=== PATIENT | male | born 1970 | race Hispanic/Latino ===

== ENCOUNTER 2019-02-05 20:12 | Inpatient (IN) | payer SELFPAY ==
[~2019-02-05] VITALS: Ht 170.2 cm; Wt 93.5 kg
[2019-02-05] MEDS ORDERED: SODIUM CHLORIDE 0.9% 1000ML 2,000 ML IV ONE (20:24)
[2019-02-05 20:31] LABS: BASOPHILS % (AUTO) 0.2 % (0.0-5.0); EOSINOPHILS % (AUTO) 0.1 % (0.0-8.0); HEMATOCRIT 46.8 % (42-54); MEAN CORPUSCULAR HEMOGLOBIN 29.6 pg (27.0-33.0); MEAN CORPUSCULAR HGB CONC 33.7 g/dL (32.0-36.0); MONOCYTES % (AUTO) 2.4 % (3.0-13.0); NEUTROPHILS % (AUTO) 92.3 % (40.0-77.0); PLATELET COUNT (AUTO) 308 K/uL (130-400); RED BLOOD CELL COUNT(AUTO) 5.32 MIL/uL (4.50-6.20); WHITE BLOOD COUNT (AUTO) 20.8 K/uL (4.8-10.8)
[2019-02-05 20:43] LABS: INR 0.99 (0.85-1.15); LIPASE 171 U/L (114-286); PARTIAL THROMBOPLASTIN TIME 31.8 SEC (26.3-35.5); PROTHROMBIN TIME 10.4 SEC (9.6-11.6)
[2019-02-05 20:45] LABS: ALCOHOL, BLOOD < 3 mg/dL (0-10)
[2019-02-05 20:46] LABS: ALBUMIN 4.4 g/dL (3.5-5.0); BILIRUBIN,TOTAL 0.9 mg/dL (0.2-1.0); POTASSIUM 3.7 mmol/L (3.5-5.1); TOTAL PROTEIN, SERUM 8.4 g/dL (6.0-8.3)
[2019-02-05] MEDS ORDERED: INSULIN HUMULIN R 100 UNIT/ML 3ML ONE (21:07)
[2019-02-05] MEDS ORDERED: ASPIRIN 325 MG TABLET ONE (21:18)
[2019-02-05] MEDS ORDERED: MORPHINE SULFATE 2 MG/ML 1ML SYG IV PRN (22:15)
[2019-02-05] MEDS ORDERED: DiphenhydrAMINE HCL 50 MG/ML VIAL IV PRN (22:15)
[2019-02-05] MEDS ORDERED: ONDANSETRON HCL 4 MG/2 ML VIAL IV PRN (22:15)
[2019-02-05] MEDS ORDERED: ACETAMINOPHEN 325 MG TAB PO PRN (22:15)
[2019-02-05 22:37] LABS: HEMOGLOBIN A1C 10.5 % (4.0-6.0)
[2019-02-05 23:09] LABS: APPEARANCE,URINE Clear (CLEAR); BILIRUBIN,URINE Negative (NEGATIVE); COLOR,URINE Yellow (YELLOW); GLUCOSE, URINE (UA) >=1000 mg/dL (NEGATIVE); KETONES,URINE 15 mg/dL (NEGATIVE); LEUKOCYTE ESTERASE ,URINE Negative (NEGATIVE); NITRATE,URINE Negative (NEGATIVE); OCCULT BLOOD,URINE Negative (NEGATIVE); PROTEIN,URINE Negative (NEGATIVE); UROBILINOGEN,URINE 0.2 mg/dL (0.2-1.0)
[2019-02-05] MEDS ORDERED: SODIUM CHLORIDE 0.9% 1000ML 1,000 ML IV ONE (23:17)
[2019-02-05 23:25] LABS: AMPHET/METH SCREEN,URINE NEGATIVE (NEGATIVE); BARBITURATE SCREEN, URINE NEGATIVE (NEGATIVE); BENZODIAZEPINES SCREEN,URINE NEGATIVE (NEGATIVE); CANNABINOID SCREEN,URINE NEGATIVE (NEGATIVE); COCAINE SCREEN,URINE NEGATIVE (NEGATIVE); OPIATE SCREEN,URINE NEGATIVE (NEGATIVE); PHENCYCLIDINE SCREEN,URINE NEGATIVE (NEGATIVE)
[2019-02-05 23:39] LABS: BACTERIA,URINE Rare /HPF (None Seen); MUCUS,URINE Rare LPF (None Seen); RBC,URINE None Seen /HPF (0-1); SQUAMOUS EPITHELIAL CELL,UR 0-2 /HPF (0-2); WBC,URINE 0-1 /HPF (0-1)
[2019-02-06] VITALS (7 sets, daily range): BP systolic 118–137; BP diastolic 73–85
[2019-02-06] MEDS: SODIUM CHLORIDE 0.9% 1000ML 1,000 ML IV SCH ×3 (01:50→18:02)
[2019-02-06 03:03] LABS: CHOLESTEROL 97 mg/dL (<200); HDL CHOLESTEROL 51 mg/dL (29-71); LDL DIRECT 51 mg/dL (0-99); TRIGLYCERIDES 153 mg/dL (30-200)
--- NOTE | 2019-02-06 03:50 | NUR ---
STATUS UPDATE PT DENIES ACUTE PAIN OR DISCOMFORT, V/S STABLE HR 92,RESP REG ,EASY , SAO2 98% WITH O2 2LPM PER NC,NO CHEST PAIN REPORTED. Addendum: 02/06/19 at 0445 by NOHEMY MUNOZ RN RN Amended: Links added.
[2019-02-06] MEDS: INSULIN HUMULIN R 100 UNIT/ML 3ML SQ SCH ×4 (06:03→21:06)
--- NOTE | 2019-02-06 08:00 | NUR ---
PT . AAO X3 REVIEW PLAN OF CARE. NO PAIN ON BEE STINGS SITE TO HIS FACE AND HEAD, NO INCREASE SWELLING NOTED . CALL LIGHT IN REACH. NO REACTIONS FROM BEE STINGS NOTED .
[2019-02-06] MEDS ORDERED: METOPROLOL TARTRATE 25 MG TAB PO SCH (09:00)
[2019-02-06] MEDS: PREDNISONE 10 MG TABLET PO SCH (09:09)
[2019-02-06] MEDS: ASPIRIN 325MG EC TAB 325 MG TABLET.DR PO SCH (09:09)
[2019-02-06] MEDS: FAMOTIDINE 20MG TAB 20 MG TAB PO SCH ×2 (09:10→21:04)
[2019-02-06] MEDS: ENOXAPARIN SODIUM 40 MG/0.4 ML SYRINGE SQ SCH (09:25)
--- NOTE | 2019-02-06 11:58 | NUR ---
ALBERTO Bernal met with pt who has a 12yro daughter, they live with his mother Kierra Vega [phone], and his aunt and uncle. Pt works, is independent, no DME or in home care services. Pt has no PCP or rx coverage. Pt states he is on no regular meds. Pt denies dc needs, plan is home with family. CM to follow and assist as needed Addendum: 02/06/19 at 1205 by BIMAL MURILLO SS Amended: Links added.
[2019-02-06] MEDS: GLIPIZIDE 5 MG TABLET PO SCH (16:48)
[2019-02-06] MEDS: METFORMIN HCL 500 MG TABLET PO SCH (17:16)
[2019-02-06] MEDS ORDERED: ATORVASTATIN CALCIUM 20 MG TABLET PO SCH (21:00)
[2019-02-06] MEDS: METOPROLOL TARTRATE 25 MG TAB PO SCH (21:04)
[2019-02-07 03:00] VITALS: BP 119/72
[2019-02-07] MEDS: SODIUM CHLORIDE 0.9% 1000ML 1,000 ML IV SCH ×2 (03:30→14:02)
[2019-02-07 05:45] LABS: BASOPHILS % (AUTO) 0.3 % (0.0-5.0); EOSINOPHILS % (AUTO) 3.1 % (0.0-8.0); HEMATOCRIT 36.2 % (42-54); LYMPHOCYTES % (AUTO) 34.1 % (21.0-51.0); MEAN CORPUSCULAR HEMOGLOBIN 30.4 pg (27.0-33.0); MEAN CORPUSCULAR HGB CONC 34.3 g/dL (32.0-36.0); MEAN CORPUSCULAR VOLUME 88.5 fL (79-99); MONOCYTES % (AUTO) 6.8 % (3.0-13.0); NEUTROPHILS % (AUTO) 55.7 % (40.0-77.0); NUCLEATED RED BLOOD CELLS 0.1 % (0.0-0.19); PLATELET COUNT (AUTO) 227 K/uL (130-400); RED BLOOD CELL COUNT(AUTO) 4.09 MIL/uL (4.50-6.20); RED CELL DISTRIBUTION WIDTH 13.2 % (11.0-15.5); WHITE BLOOD COUNT (AUTO) 11.8 K/uL (4.8-10.8)
[2019-02-07 06:26] LABS: TROPONIN I 0.26 ng/mL (0.00-0.06)
[2019-02-07 06:33] LABS: CREATININE 0.5 mg/dL (0.5-1.5); POTASSIUM 3.2 mmol/L (3.5-5.1)
[2019-02-07] MEDS: INSULIN HUMULIN R 100 UNIT/ML 3ML SQ SCH ×3 (06:34→16:24)
[2019-02-07] MEDS ORDERED: POTASSIUM CHLORIDE 10% ELIXIR 20 MEQ/15 ML UDCUP PO PRN (06:45)
[2019-02-07] MEDS ORDERED: POTASSIUM CHLORIDE 20MEQ/100ML 100 ML IV PRN (06:45)
[2019-02-07] MEDS ORDERED: LIDOCAINE HCL-MPF 1% 2ML VIAL IVP PRN (06:45)
[2019-02-07] MEDS: POTASSIUM CHLORIDE 20 MEQ ERTAB PO PRN ×3 (06:49→15:24)
[2019-02-07] MEDS: GLIPIZIDE 5 MG TABLET PO SCH ×2 (06:49→16:27)
[2019-02-07 07:00] VITALS: BP 125/79
[2019-02-07] MEDS: METFORMIN HCL 500 MG TABLET PO SCH ×3 (08:10→16:27)
[2019-02-07] MEDS: ASPIRIN 325MG EC TAB 325 MG TABLET.DR PO SCH (08:10)
[2019-02-07] MEDS: FAMOTIDINE 20MG TAB 20 MG TAB PO SCH (08:10)
[2019-02-07] MEDS: PREDNISONE 10 MG TABLET PO SCH (08:10)
[2019-02-07] MEDS: METOPROLOL TARTRATE 25 MG TAB PO SCH (08:10)
[2019-02-07] MEDS: ENOXAPARIN SODIUM 40 MG/0.4 ML SYRINGE SQ SCH (08:11)
--- NOTE | 2019-02-07 10:00 | NUR ---
DIABETIC TEACHING PER DIETITIAN DONE, REVIEW TEACHING AND QUESTIONS AND MEDICATION AND BLOOD SUGARS MONITORING. PT IS VERY ATTENDANCE RE GARDING CARE . CALL LIGHT IN REACH..
[2019-02-07 11:00] VITALS: BP 123/76
--- NOTE | 2019-02-07 12:54 | NUR ---
Diet Education RD provided Diabetes and Nutrition diet education. RD reviewed dietary reference materials with Pt. Pt with numerous applicable questions. RD answered all of questions. Pt verbalized understanding. RD to continue to monitor. Addendum: 02/07/19 at [address] RD Amended: Links added.
[2019-02-07] MEDS ORDERED: GLIP5TAB11 PO (15:45)
[2019-02-07] MEDS ORDERED: AEC81 PO (15:45)
[2019-02-07] MEDS ORDERED: ATOR20TA65 PO (15:45)
[2019-02-07] MEDS ORDERED: METF-446 PO (15:45)
[2019-02-07] MEDS ORDERED: PRED20TA3 PO (15:45)
[2019-02-07] MEDS ORDERED: METO50TA18 PO (15:45)
[2019-02-07 16:00] VITALS: BP 132/86
== END 2019-02-07 17:45 | disposition home or self-care (01) | DRG 918 ==
LOC: EDH 20:12 → EDHIP 20:13 → OBSVTOIN 20:13 → UNDOADMOB 22:02 → EDHIP 22:02 → 3AH 02-06 01:19
PROVIDERS: ADMIT Internal Medicine; ATTEND Internal Medicine
DX: T63.441A Toxic effect of venom of bees, accidental (unintentional), initial encounter (principal); I24.8 Other forms of acute ischemic heart disease; I10 Essential (primary) hypertension; E11.9 Type 2 diabetes mellitus without complications; D72.829 Elevated white blood cell count, unspecified; L29.9 Pruritus, unspecified; E78.5 Hyperlipidemia, unspecified; Y92.89 Other specified places as the place of occurrence of the external cause
CPT/HCPCS: 36415; 71045; 80048; 80053; 80061; 80305; 81001; 82010; 82550; 82948; 83036; 83690; 83874; 83880; 84484; 85025; 85610; 85730; 93005; G0378; G0480; J1650; J1815; J7030; J7512

== ENCOUNTER 2019-05-05 10:10 | Inpatient (IN) | payer OTHER ==
[~2019-05-05] VITALS: Ht 172.7 cm; Wt 98.9 kg
[~2019-05-05 10:10] MED LIST: AEC81 PO; ATOR20TA65 PO; GLIP5TAB11 PO; METF-446 PO; METO50TA18 PO; PRED20TA3 PO
[2019-05-05 10:42] LABS: BASOPHILS % (AUTO) 0.7 % (0.0-5.0); EOSINOPHILS % (AUTO) 0.9 % (0.0-8.0); HEMATOCRIT 38.3 % (42-54); LYMPHOCYTES % (AUTO) 23.6 % (21.0-51.0); MEAN CORPUSCULAR HEMOGLOBIN 29.4 pg (27.0-33.0); MEAN CORPUSCULAR HGB CONC 33.3 g/dL (32.0-36.0); MEAN CORPUSCULAR VOLUME 88.2 fL (79-99); NEUTROPHILS % (AUTO) 65.8 % (40.0-77.0); PLATELET COUNT (AUTO) 295 K/uL (130-400); RED BLOOD CELL COUNT(AUTO) 4.34 MIL/uL (4.50-6.20); RED CELL DISTRIBUTION WIDTH 13.6 % (11.0-15.5); WHITE BLOOD COUNT (AUTO) 10.4 K/uL (4.8-10.8)
[2019-05-05 10:45] LABS: POTASSIUM 3.8 mmol/L (3.5-5.1)
[2019-05-05 10:47] LABS: INR 1.21 (0.85-1.15); PARTIAL THROMBOPLASTIN TIME 27.6 SEC (26.3-35.5); PROTHROMBIN TIME 12.6 SEC (9.6-11.6)
[2019-05-05] MEDS ORDERED: DILTIAZEM HCL 125 MG/25 ML VIAL IV ONE (10:48)
[2019-05-05 10:56] LABS: ALBUMIN 3.1 g/dL (3.5-5.0); BILIRUBIN,DIRECT 0.3 mg/dL (0.0-0.3); BILIRUBIN,TOTAL 1.1 mg/dL (0.2-1.0); MAGNESIUM 2.7 mg/dL (1.80-2.40); THYROID STIMULATING HORMONE 2.56 uIU/mL (0.36-3.74); TOTAL PROTEIN, SERUM 6.8 g/dL (6.0-8.3)
[2019-05-05] MEDS ORDERED: FUROSEMIDE 10 MG/ML 2ML VIAL ONE (11:02)
[2019-05-05 11:03] LABS: CREATININE 0.6 mg/dL (0.5-1.5)
[2019-05-05] MEDS ORDERED: METOPROLOL TARTRATE 1 MG/ML 5ML VIAL IV ONE ×2 (11:10→18:58)
[2019-05-05 11:14] LABS: B-TYPE NATRIURETIC PEPTIDE 321 pg/mL (0-100)
[2019-05-05] MEDS ORDERED: ACETAMINOPHEN 325 MG TAB PO PRN ×2 (11:15)
[2019-05-05] MEDS ORDERED: ONDANSETRON HCL 4 MG/2 ML VIAL IV PRN (11:15)
[2019-05-05] MEDS ORDERED: METOPROLOL TARTRATE 25 MG TAB ONE (12:28)
[2019-05-05] MEDS ORDERED: METOPROLOL TARTRATE 25 MG TAB PO SCH (14:00)
[2019-05-05] MEDS ORDERED: PHENYLEPHRINE HCL 10 MG/ML 1ML VIAL IV ONE (14:02)
[2019-05-05] MEDS ORDERED: MANNITOL 25% 50ML VIAL IV ONE (14:02)
[2019-05-05] MEDS ORDERED: ALBUMIN (HUMAN) 25% 50 ML IV ONE (14:02)
[2019-05-05] MEDS ORDERED: AMINOCAPROIC ACID 250 MG/ML 20 ML VIAL IV ONE (14:02)
[2019-05-05] MEDS ORDERED: HEPARIN SODIUM 1000UNIT/ML 10ML VIAL IV ONE (14:02)
[2019-05-05] MEDS ORDERED: FUROSEMIDE 10 MG/ML 2ML VIAL IVP ONE (14:02)
[2019-05-05] MEDS ORDERED: SODIUM BICARB 8.4% 50ML SYRINGE IVP ONE (14:02)
[2019-05-05] MEDS ORDERED: CALCIUM CHLORIDE 100 MG/ML 10 ML SYG IVP ONE (14:02)
[2019-05-05] MEDS ORDERED: ENOXAPARIN SODIUM 100 MG/1 ML SQ ONE (20:40)
[2019-05-05] MEDS ORDERED: ATORVASTATIN CALCIUM 20 MG TABLET ONE (20:40)
[2019-05-05] MEDS ORDERED: FAMOTIDINE/PF 20 MG/2 ML VIAL IV ONE (20:40)
[2019-05-05] MEDS: ATORVASTATIN CALCIUM 20 MG TABLET PO SCH (21:00)
[2019-05-06] MEDS ORDERED: METOPROLOL TARTRATE 25 MG TAB ONE ×4 (00:24→16:19)
[2019-05-06] MEDS ORDERED: METOPROLOL TARTRATE 1 MG/ML 5ML VIAL IV ONE ×3 (00:29→12:42)
[2019-05-06 01:48] LABS: APPEARANCE,URINE Clear (CLEAR); BILIRUBIN,URINE Negative (NEGATIVE); COLOR,URINE Yellow (YELLOW); GLUCOSE, URINE (UA) Negative (NEGATIVE); KETONES,URINE Negative (NEGATIVE); LEUKOCYTE ESTERASE ,URINE Negative (NEGATIVE); NITRATE,URINE Negative (NEGATIVE); OCCULT BLOOD,URINE Negative (NEGATIVE); PROTEIN,URINE Negative (NEGATIVE)
[2019-05-06 01:55] LABS: AMPHET/METH SCREEN,URINE NEGATIVE (NEGATIVE); BARBITURATE SCREEN, URINE NEGATIVE (NEGATIVE); BENZODIAZEPINES SCREEN,URINE NEGATIVE (NEGATIVE); CANNABINOID SCREEN,URINE NEGATIVE (NEGATIVE); COCAINE SCREEN,URINE NEGATIVE (NEGATIVE); OPIATE SCREEN,URINE NEGATIVE (NEGATIVE); PHENCYCLIDINE SCREEN,URINE NEGATIVE (NEGATIVE)
[2019-05-06] MEDS ORDERED: ASPIRIN 325 MG TABLET ONE (07:21)
[2019-05-06] MEDS ORDERED: FAMOTIDINE/PF 20 MG/2 ML VIAL IV ONE (07:22)
[2019-05-06] MEDS: ASPIRIN 325 MG TABLET PO SCH (09:00)
[2019-05-06] MEDS: FAMOTIDINE/PF 20 MG/2 ML VIAL IV SCH ×2 (09:00→20:42)
[2019-05-06] MEDS: ENOXAPARIN SODIUM 100 MG/1 ML SQ SCH ×2 (09:00→20:41)
[2019-05-06] MEDS: METOPROLOL TARTRATE 25 MG TAB PO SCH ×3 (09:00→20:42)
[2019-05-06 09:35] LABS: BASOPHILS % (AUTO) 0.8 % (0.0-5.0); EOSINOPHILS % (AUTO) 0.7 % (0.0-8.0); HEMATOCRIT 39.2 % (42-54); LYMPHOCYTES % (AUTO) 28.8 % (21.0-51.0); MEAN CORPUSCULAR HGB CONC 33.3 g/dL (32.0-36.0); MEAN CORPUSCULAR VOLUME 89.9 fL (79-99); MONOCYTES % (AUTO) 7.4 % (3.0-13.0); NEUTROPHILS % (AUTO) 62.3 % (40.0-77.0); PLATELET COUNT (AUTO) 296 K/uL (130-400); RED BLOOD CELL COUNT(AUTO) 4.35 MIL/uL (4.50-6.20); RED CELL DISTRIBUTION WIDTH 13.7 % (11.0-15.5); WHITE BLOOD COUNT (AUTO) 9.6 K/uL (4.8-10.8)
[2019-05-06 10:00] LABS: CARBON DIOXIDE 22 mmol/L (21-32); CHLORIDE 103 mmol/L (101-111); CREATINE KINASE, TOTAL 100 U/L (21-232); CREATININE 0.6 mg/dL (0.5-1.5); GLOMERULAR FILTR. RATE CALC 152 mL/min (>60); GLUCOSE,RANDOM 185 mg/dL (70-105); MYOGLOBIN 35 ng/mL (10-92); PHOSPHORUS 4.1 mg/dL (2.5-4.9); POTASSIUM 3.8 mmol/L (3.5-5.1); SODIUM SERUM 135 mmol/L (136-145); THYROID STIMULATING HORMONE 3.09 uIU/mL (0.36-3.74); TROPONIN I < 0.04 ng/mL (0.00-0.06); UREA NITROGEN, BLOOD 11 mg/dL (7-18)
[2019-05-06] MEDS ORDERED: FUROSEMIDE 10 MG/ML 4ML VIAL ONE (12:52)
[2019-05-06] MEDS ORDERED: ENOXAPARIN SODIUM 100 MG/1 ML SQ ONE (12:52)
--- NOTE | 2019-05-06 14:09 | NUR ---
DCP: HOME SW met with pt who works and is independent of all ADLS and has no DME or in home cares services. Pt lives with his mother Carla Perdue and his 13yro daughter. Pt denies dc needs and plan is home at sd. Addendum: 05/06/19 at 1412 by BIMAL MURILLO SS Amended: Links added.
[2019-05-06] MEDS: FUROSEMIDE 10 MG/ML 4ML VIAL IV SCH (16:15)
[2019-05-06] MEDS: INSULIN HUMULIN R 100 UNIT/ML 3ML SQ SCH ×2 (16:30→20:48)
[2019-05-06 16:39] LABS: CREATINE KINASE, TOTAL 92 U/L (21-232); MYOGLOBIN 29 ng/mL (10-92); TROPONIN I < 0.04 ng/mL (0.00-0.06)
[2019-05-06 17:15] VITALS: BP 131/94
[2019-05-06 19:56] VITALS: BP 139/92
[2019-05-06] MEDS: ATORVASTATIN CALCIUM 20 MG TABLET PO SCH (20:41)
[2019-05-06 23:06] VITALS: BP 145/88
[2019-05-07] LABS: CREATINE KINASE, TOTAL 98 U/L (21-232); MYOGLOBIN 30 ng/mL (10-92); TROPONIN I < 0.04 ng/mL (0.00-0.06)
[2019-05-07] MEDS: FUROSEMIDE 10 MG/ML 4ML VIAL IV SCH ×3 (00:14→16:14)
--- NOTE | 2019-05-07 01:20 | NUR ---
SPOKE TO JEANNE CONN, INFORMED HIM ABOUT PATIENT HEART RATE FROM 130-150 AFIB, HE INPUT A NEW ORDER OF LOPRESSOR 5MG IV Q6
[2019-05-07] MEDS: METOPROLOL TARTRATE 1 MG/ML 5ML VIAL IV PRN ×2 (01:57→12:51)
--- NOTE | 2019-05-07 02:20 | NUR ---
PT GIVEN LOPRESSOR 5MG IV PRN. DUE TO HR 140'S. PT CURRENTLY AT 110. PT IS ASYMPTOMATIC.
[2019-05-07 03:05] VITALS: BP 112/51
[2019-05-07] MEDS: INSULIN HUMULIN R 100 UNIT/ML 3ML SQ SCH ×4 (05:44→20:26)
[2019-05-07 07:20] VITALS: BP 128/75
[2019-05-07] MEDS: FAMOTIDINE/PF 20 MG/2 ML VIAL IV SCH ×2 (08:53→20:15)
[2019-05-07] MEDS: ASPIRIN 325 MG TABLET PO SCH (08:53)
[2019-05-07] MEDS: METOPROLOL TARTRATE 25 MG TAB PO SCH ×3 (08:53→20:14)
[2019-05-07] MEDS: ENOXAPARIN SODIUM 100 MG/1 ML SQ SCH ×2 (08:54→20:14)
[2019-05-07 11:05] VITALS: BP 128/89
[2019-05-07 15:00] VITALS: BP 106/69
[2019-05-07 19:03] VITALS: BP 112/74
[2019-05-07] MEDS: ATORVASTATIN CALCIUM 20 MG TABLET PO SCH (20:15)
[2019-05-07 23:11] VITALS: BP 127/89
[2019-05-08] MEDS: FUROSEMIDE 10 MG/ML 4ML VIAL IV SCH ×2 (00:58→08:48)
[2019-05-08 03:24] VITALS: BP 118/73
[2019-05-08 04:33] LABS: HEMATOCRIT 36.4 % (42-54); MEAN CORPUSCULAR HEMOGLOBIN 29.8 pg (27.0-33.0); MEAN CORPUSCULAR HGB CONC 33.7 g/dL (32.0-36.0); MEAN CORPUSCULAR VOLUME 88.4 fL (79-99); NUCLEATED RED BLOOD CELLS 0.1 % (0.0-0.19); PLATELET COUNT (AUTO) 311 K/uL (130-400); RED BLOOD CELL COUNT(AUTO) 4.12 MIL/uL (4.50-6.20); RED CELL DISTRIBUTION WIDTH 13.4 % (11.0-15.5); WHITE BLOOD COUNT (AUTO) 10.7 K/uL (4.8-10.8)
[2019-05-08 04:46] LABS: CARBON DIOXIDE 26 mmol/L (21-32); CHLORIDE 106 mmol/L (101-111); CREATININE 0.6 mg/dL (0.5-1.5); GLOMERULAR FILTR. RATE CALC 152 mL/min (>60); GLUCOSE,RANDOM 112 mg/dL (70-105); HDL CHOLESTEROL 20 mg/dL (29-71); LDL DIRECT 25 mg/dL (0-99); SODIUM SERUM 144 mmol/L (136-145); TRIGLYCERIDES 30 mg/dL (30-200); UREA NITROGEN, BLOOD 11 mg/dL (7-18)
--- NOTE | 2019-05-08 05:00 | NUR ---
PT HAS BEEN INFORMED MULTIPLE TIMES TO USE URINAL, DUE TO STRICT I/O'S. NON COMPLIANT. CONTINUES TO VOID IN THE TOILET. URINAL PLACED NEAR THE TOILET. PT AWARE TO USE URINAL IN ORDER TO DOCUMENT AMOUNT OF OUTPUT DUE TO ACUTE CHF DIAGNOSIS.
[2019-05-08 05:36] LABS: HEMOGLOBIN A1C 8.2 % (4.0-6.0)
[2019-05-08] MEDS ORDERED: LIDOCAINE HCL-MPF 1% 2ML VIAL IV PRN (05:45)
[2019-05-08] MEDS ORDERED: POTASSIUM CHLORIDE 10% ELIXIR 20 MEQ/15 ML UDCUP PO PRN (05:45)
[2019-05-08] MEDS ORDERED: POTASSIUM CHLORIDE 20MEQ/100ML 100 ML IV PRN (05:45)
[2019-05-08] MEDS: INSULIN HUMULIN R 100 UNIT/ML 3ML SQ SCH ×4 (06:11→21:00)
[2019-05-08 06:12] LABS: BAND NEUTROPHILS % (MANUAL) 1 % (0-2); BASOPHILS % (MANUAL) 4 % (0-2); EOSINOPHILS % (MANUAL) 1 % (1-6); LYMPHOCYTES % (MANUAL) 40 % (22-44); MONOCYTES % (MANUAL) 10 % (2-9); SEGMENTED NEUTROPHILS % 44 % (40-70)
[2019-05-08 06:14] LABS: MAN.DIFF COMMENT-IMPRESSION MANUAL DIFFERENTIAL; PLATELET MORPHOLOGY COMMENT ADEQUATE
[2019-05-08] MEDS: POTASSIUM CHLORIDE 20 MEQ ERTAB PO PRN ×5 (06:48→22:06)
[2019-05-08 07:05] VITALS: BP 123/76
[2019-05-08] MEDS: FAMOTIDINE/PF 20 MG/2 ML VIAL IV SCH ×2 (08:47→21:19)
[2019-05-08] MEDS: METOPROLOL TARTRATE 25 MG TAB PO SCH ×3 (08:47→21:19)
[2019-05-08] MEDS: ASPIRIN 325 MG TABLET PO SCH (08:47)
[2019-05-08] MEDS: ENOXAPARIN SODIUM 100 MG/1 ML SQ SCH ×2 (08:48→21:19)
[2019-05-08] MEDS: METOPROLOL TARTRATE 1 MG/ML 5ML VIAL IV PRN (09:04)
[2019-05-08 11:05] VITALS: BP 108/67
[2019-05-08] MEDS ORDERED: DILTIAZEM HCL 5 MG/ML 10 ML VIAL IV ONE (12:04)
[2019-05-08] MEDS ORDERED: DILTIAZEM HCL 5 MG/ML 10 ML VIAL IV SCH (12:10)
[2019-05-08 13:17] LABS: CHOLESTEROL < 50 mg/dL (<200)
[2019-05-08] MEDS ORDERED: IOHEXOL-350 75 ML VIAL IV ONE (13:46)
[2019-05-08 15:00] VITALS: BP 110/76
[2019-05-08] MEDS: DILTIAZEM HCL 60 MG TABLET PO SCH (17:16)
[2019-05-08 18:51] VITALS: BP 105/55
[2019-05-08] MEDS: ATORVASTATIN CALCIUM 20 MG TABLET PO SCH (21:19)
[2019-05-08 23:11] VITALS: BP 108/71
[2019-05-09] MEDS: DILTIAZEM HCL 60 MG TABLET PO SCH ×4 (00:39→23:54)
[2019-05-09 03:30] VITALS: BP 100/66
[2019-05-09 03:56] LABS: HEMATOCRIT 38.3 % (42-54); MEAN CORPUSCULAR HEMOGLOBIN 29.6 pg (27.0-33.0); MEAN CORPUSCULAR HGB CONC 33.6 g/dL (32.0-36.0); MEAN CORPUSCULAR VOLUME 88.1 fL (79-99); NUCLEATED RED BLOOD CELLS 0.1 % (0.0-0.19); PLATELET COUNT (AUTO) 331 K/uL (130-400); RED BLOOD CELL COUNT(AUTO) 4.35 MIL/uL (4.50-6.20); RED CELL DISTRIBUTION WIDTH 13.6 % (11.0-15.5); WHITE BLOOD COUNT (AUTO) 10.3 K/uL (4.8-10.8)
[2019-05-09 04:06] LABS: CREATININE 0.7 mg/dL (0.5-1.5); POTASSIUM 4.1 mmol/L (3.5-5.1)
[2019-05-09 04:56] LABS: BAND NEUTROPHILS % (MANUAL) 4 % (0-2); BASOPHILS % (MANUAL) 1 % (0-2); LYMPHOCYTES % (MANUAL) 36 % (22-44); MAN.DIFF COMMENT-IMPRESSION MANUAL DIFFERENTIAL; MONOCYTES % (MANUAL) 3 % (2-9); REACTIVE LYMPHOCYTES 1 % (0-0); SEGMENTED NEUTROPHILS % 55 % (40-70)
[2019-05-09 04:57] LABS: PLATELET MORPHOLOGY COMMENT ADEQUATE
[2019-05-09] MEDS ORDERED: MAGNESIUM 2GM PREMIX 50ML 50 ML IV PRN (05:15)
[2019-05-09] MEDS ORDERED: MAGNESIUM 2GM PREMIX 50ML 50 ML IV ONE (05:39)
[2019-05-09] MEDS: INSULIN HUMULIN R 100 UNIT/ML 3ML SQ SCH ×4 (06:32→21:32)
[2019-05-09 07:00] VITALS: BP 123/73
--- NOTE | 2019-05-09 07:30 | NUR ---
ASSESSMENT ENCOUNTERED PT A&OX3, CALM COOPERATIVE AND DOES NOT APPEAR TO BE IN ANY DISTRESS NOR ANY NEURO DEFICITS PRESENT. PT DENIES PAIN, SOB, NAUSEA. PT IS AMBULATORY, GAIT SLOW AND STRONG WITH STAND BY ASSIST, PT IS NPO FOR PENDING LEXISCAN. CALL LIGHT WITHIN REACH.
[2019-05-09] MEDS: FAMOTIDINE/PF 20 MG/2 ML VIAL IV SCH (07:58)
[2019-05-09] MEDS: ENOXAPARIN SODIUM 100 MG/1 ML SQ SCH ×2 (07:58→21:28)
[2019-05-09] MEDS: METOPROLOL TARTRATE 25 MG TAB PO SCH ×3 (07:59→21:28)
[2019-05-09] MEDS ORDERED: REGADENOSON 0.4 MG/5 ML PF SYG IVP SCH (08:15)
[2019-05-09 11:00] VITALS: BP 120/74
[2019-05-09] MEDS: ASPIRIN 325 MG TABLET PO SCH (13:03)
[2019-05-09] MEDS: FUROSEMIDE 40 MG TABLET PO SCH (13:03)
[2019-05-09 15:00] VITALS: BP 133/78
[2019-05-09 19:00] VITALS: BP 108/69
[2019-05-09] MEDS: ATORVASTATIN CALCIUM 20 MG TABLET PO SCH (21:27)
[2019-05-09] MEDS: FAMOTIDINE 20MG TAB 20 MG TAB PO SCH (21:28)
[2019-05-09 23:00] VITALS: BP 106/66
[2019-05-10] VITALS (7 sets, daily range): BP systolic 98–118; BP diastolic 64–78
[2019-05-10 03:45] LABS: HEMATOCRIT 37.8 % (42-54); MEAN CORPUSCULAR HEMOGLOBIN 29.6 pg (27.0-33.0); MEAN CORPUSCULAR HGB CONC 33.3 g/dL (32.0-36.0); MEAN CORPUSCULAR VOLUME 88.7 fL (79-99); NUCLEATED RED BLOOD CELLS 0.1 % (0.0-0.19); PLATELET COUNT (AUTO) 301 K/uL (130-400); RED BLOOD CELL COUNT(AUTO) 4.27 MIL/uL (4.50-6.20); RED CELL DISTRIBUTION WIDTH 13.3 % (11.0-15.5); WHITE BLOOD COUNT (AUTO) 9.5 K/uL (4.8-10.8)
[2019-05-10 03:59] LABS: B-TYPE NATRIURETIC PEPTIDE 182 pg/mL (0-100)
[2019-05-10 04:03] LABS: CREATININE 0.7 mg/dL (0.5-1.5); MAGNESIUM 1.9 mg/dL (1.80-2.40); PHOSPHORUS 3.8 mg/dL (2.5-4.9); POTASSIUM 3.7 mmol/L (3.5-5.1)
[2019-05-10] MEDS: INSULIN HUMULIN R 100 UNIT/ML 3ML SQ SCH ×4 (05:22→20:33)
[2019-05-10] MEDS: DILTIAZEM HCL 60 MG TABLET PO SCH ×3 (05:36→18:01)
--- NOTE | 2019-05-10 07:35 | NUR ---
ASSESSMENT ENCOUNTERED PT A&OX3, SITTING UP IN CHAIR, CALM COOPERATIVE AN DOES NOT APPEAR TO BE IN ANY DISTRESS NOR ANY NEURO DEFICITS PRESENT. PT DENIES PAIN, SOB, NAUSEA. PT IS AMBULATORY, GAIT STEADY AND STRONG WITH STAND BY ASSIST. CALL LIGHT WITHIN REACH.
[2019-05-10] MEDS: FAMOTIDINE 20MG TAB 20 MG TAB PO SCH ×2 (10:26→20:25)
[2019-05-10] MEDS: ASPIRIN 325 MG TABLET PO SCH (10:26)
[2019-05-10] MEDS: FUROSEMIDE 40 MG TABLET PO SCH (10:26)
[2019-05-10] MEDS: ENOXAPARIN SODIUM 100 MG/1 ML SQ SCH ×2 (10:27→20:26)
[2019-05-10] MEDS: METOPROLOL TARTRATE 25 MG TAB PO SCH ×3 (10:27→20:25)
[2019-05-10] MEDS ORDERED: SODIUM CHLORIDE 0.9% 500ML 500 ML IV SCH (10:36)
--- NOTE | 2019-05-10 17:22 | NUR ---
RD SCREEN - LOS X 5 Pt admitted for Acute CHF, Afib with RVR, Hx of DM, Obesity (BMI 33.9). Pt tolerating current Heart healthy diet order as per Pt; Recommend 75gm CC to diet order. Pt LBM 05/09/19. Pt monitored labs: BUN 21, Glu 156, Ca 8.1, BNP 182, Alb 3.1. RD to continue to monitor. Please notify RD as nutritional concerns arise. Thank you. Addendum: 05/10/19 at [address] RD Amended: Links added.
--- NOTE | 2019-05-10 19:31 | NUR ---
ASSESSMENT PATIENT IS RESTING IN BED. FAMILY AT BEDSIDE. ALERT AND ORIENTED X3. NO COMPLAINTS OF PAIN. NO SIGNS OF DISTRESS. NO SHORTNESS OF BREATH. PATIENT IS AWARE OF NPO P MIDNIGHT STATUS FOR HEART CATH TOMORROW. PATIENT UNDERSTAND AND AGREES FOR PROCEDURE AND WILL OBTAIN INFORMED CONSENT FOR PROCEDURE ORDERED TODAY SINCE 10AM. PATIENTS CALL LIGHT AND BEDSIDE TABLE IS WITHIN REACH. PATIENT IS AMBULATORY WITH NO ASSIST. PATIENT VOICES NO COMPLAINTS, QUESTIONS, OR NEEDS AT THIS TIME. REINFORCED TO USE CALL LIGHT FOR ANY NEEDS.
[2019-05-10] MEDS: ATORVASTATIN CALCIUM 20 MG TABLET PO SCH (20:25)
[2019-05-11] VITALS (10 sets, daily range): BP systolic 101–133; BP diastolic 62–88
--- NOTE | 2019-05-11 | NUR ---
ASSESSMENT PATIENT IS RESTING IN BED. NO SIGNS OF DISTRESS. NO SHORTNESS OF BREATH. NO COMPLAINTS OF PAIN AT THIS TIME. PATIENT IS REINFORCED AND REMINDED THAT HE IS NPO FOR HEART CATH IN THE AM. PATIENT HAS ALREADY SHOWERED AND BEEN CLIPPED FOR PROCEDURE. CALL LIGHT WITHIN REACH. NO COMPLAINTS, QUESTIONS, OR NEEDS AT THIS TIME.
[2019-05-11] MEDS: DILTIAZEM HCL 60 MG TABLET PO SCH ×4 (00:27→18:26)
[2019-05-11 04:37] LABS: HEMATOCRIT 37.9 % (42-54); MEAN CORPUSCULAR HEMOGLOBIN 29.3 pg (27.0-33.0); MEAN CORPUSCULAR HGB CONC 33.2 g/dL (32.0-36.0); MEAN CORPUSCULAR VOLUME 88.2 fL (79-99); NUCLEATED RED BLOOD CELLS 0.1 % (0.0-0.19); PLATELET COUNT (AUTO) 323 K/uL (130-400); RED BLOOD CELL COUNT(AUTO) 4.29 MIL/uL (4.50-6.20); RED CELL DISTRIBUTION WIDTH 13.3 % (11.0-15.5); WHITE BLOOD COUNT (AUTO) 9.4 K/uL (4.8-10.8)
[2019-05-11 04:44] LABS: CREATININE 0.6 mg/dL (0.5-1.5); POTASSIUM 3.3 mmol/L (3.5-5.1)
[2019-05-11 04:46] LABS: INR 1.21 (0.85-1.15); PARTIAL THROMBOPLASTIN TIME 32.2 SEC (26.3-35.5); PROTHROMBIN TIME 12.6 SEC (9.6-11.6)
[2019-05-11] MEDS: INSULIN HUMULIN R 100 UNIT/ML 3ML SQ SCH ×4 (06:38→22:20)
[2019-05-11] MEDS: ENOXAPARIN SODIUM 100 MG/1 ML SQ SCH (09:00)
[2019-05-11] MEDS: ASPIRIN 325 MG TABLET PO SCH (09:00)
[2019-05-11] MEDS: FAMOTIDINE 20MG TAB 20 MG TAB PO SCH ×2 (09:12→21:02)
[2019-05-11] MEDS: METOPROLOL TARTRATE 25 MG TAB PO SCH ×3 (09:13→21:03)
[2019-05-11] MEDS: POTASSIUM CHLORIDE 20 MEQ ERTAB PO PRN ×3 (10:58→21:02)
[2019-05-11] MEDS: FUROSEMIDE 40 MG TABLET PO SCH (12:52)
[2019-05-11] MEDS ORDERED: IOHEXOL-350 50ML VIAL IV ONE (14:35)
[2019-05-11] MEDS ORDERED: HEPARIN SODIUM 1000UNIT/ML 10ML VIAL ONE (14:35)
[2019-05-11] MEDS ORDERED: IOHEXOL 350 MG/ML 100ML INFUS..BTL IV ONE (14:36)
[2019-05-11] MEDS ORDERED: LIDOCAINE HCL 2% 20ML ONE (15:06)
--- NOTE | 2019-05-11 16:26 | NUR ---
PT IN PROFILER HOLDING AREA. VS STABLE - BP 115/79, HR 98, RR 16, O2 SAT 99% ON 2L/MIN VIA NC. NO COMPLAINTS. RT FEMORAL 6FR ARTERIAL LINE REMOVED APPLYING MANUAL PRESSURE AND A D-STAT. PT TOLERATING WELL. NO BLEEDING OR HEMATOMA NOTED TO SITE.
--- NOTE | 2019-05-11 16:47 | NUR ---
MANUAL PRESSURE HELD X 25 MIN. DRESSING APPLIED TO SITE. NO BLEEDING OR HEMATOMA NOTED TO SITE. PT TRANSFERRED TO RM 221. VS STABLE BP-130/67, HR-99, RR-17, O2 SAT 97% W/ O2 @ 2 L/MIN VIA NC. NO COMPLAINTS.
--- NOTE | 2019-05-11 16:55 | NUR ---
POST CATH Received pt post LHC. Placed on tele monitor. Pt denies chest pain, pressure or tightness. Denies SOB. Pt aware of activity restrictions post procedure. Right groin D-stat drsg is clean, dry. No tenderness with palpation. No bleeding/oozing or hematoma present. BLE's warm to touch. Pedal pulses palpable. Needed items within reach. Positioned for comfort.
[2019-05-11] MEDS ORDERED: CEFAZOLIN SODIUM 1 GM VIAL IVP PRN (17:45)
[2019-05-11 19:14] LABS: HEMOGLOBIN A1C 7.5 % (4.0-6.0)
[2019-05-11] MEDS: ATORVASTATIN CALCIUM 40 MG TABLET PO SCH (21:02)
[2019-05-12] VITALS (18 sets, daily range): BP systolic 85–204; BP diastolic 47–92
--- NOTE | 2019-05-12 | NUR ---
PFTs Per RT Finn, PFTs will be done day shift.
[2019-05-12] MEDS: DILTIAZEM HCL 60 MG TABLET PO SCH ×3 (00:30→12:31)
[2019-05-12 03:58] LABS: HEMATOCRIT 37.9 % (42-54); MEAN CORPUSCULAR HEMOGLOBIN 29.2 pg (27.0-33.0); MEAN CORPUSCULAR VOLUME 88.4 fL (79-99); PLATELET COUNT (AUTO) 296 K/uL (130-400); RED BLOOD CELL COUNT(AUTO) 4.28 MIL/uL (4.50-6.20); RED CELL DISTRIBUTION WIDTH 13.4 % (11.0-15.5); WHITE BLOOD COUNT (AUTO) 8.9 K/uL (4.8-10.8)
[2019-05-12 04:09] LABS: INR 1.23 (0.85-1.15); PARTIAL THROMBOPLASTIN TIME 29.2 SEC (26.3-35.5); PROTHROMBIN TIME 12.8 SEC (9.6-11.6)
[2019-05-12 04:11] LABS: CARBON DIOXIDE 24 mmol/L (21-32); CHLORIDE 109 mmol/L (101-111); CREATININE 0.7 mg/dL (0.5-1.5); GLOMERULAR FILTR. RATE CALC 127 mL/min (>60); GLUCOSE,RANDOM 168 mg/dL (70-105); HDL CHOLESTEROL 38 mg/dL (29-71); LDL DIRECT 21 mg/dL (0-99); POTASSIUM 3.7 mmol/L (3.5-5.1); SODIUM SERUM 143 mmol/L (136-145); TRIGLYCERIDES 31 mg/dL (30-200); UREA NITROGEN, BLOOD 12 mg/dL (7-18)
[2019-05-12 04:21] LABS: B-TYPE NATRIURETIC PEPTIDE 163 pg/mL (0-100)
--- NOTE | 2019-05-12 05:21 | NUR ---
Assessment Patient s/p LHC. Patient denies chest pain or sob. Bedrest up at 0000. Groin soft. No bleeding or hematoma. Pedal pules strong. No bleeding after ambulation. Educated on pos cath restrictions. Patient prepped for CABG. HR remains A-fib.115-120/. Will continue to monitor. Call light within reach
[2019-05-12 05:30] LABS: CHOLESTEROL < 50 mg/dL (<200)
[2019-05-12] MEDS: INSULIN HUMULIN R 100 UNIT/ML 3ML SQ SCH ×2 (06:51→11:30)
[2019-05-12] MEDS ORDERED: LISINOPRIL 5 MG TABLET PO SCH (09:00)
[2019-05-12] MEDS ORDERED: ASPIRIN 81MG TAB.CHEW PO SCH (09:00)
[2019-05-12] MEDS: FAMOTIDINE 20MG TAB 20 MG TAB PO SCH (09:39)
[2019-05-12] MEDS: METOPROLOL TARTRATE 25 MG TAB PO SCH ×2 (09:40→14:00)
[2019-05-12] MEDS: FUROSEMIDE 40 MG TABLET PO SCH (09:40)
[2019-05-12] MEDS ORDERED: PAPAVERINE HCL 30 MG/ML 2ML VIAL ONE (12:38)
[2019-05-12] MEDS ORDERED: BACITRACIN 50,000 UNIT VIAL ONE (12:38)
[2019-05-12] MEDS ORDERED: HEPARIN SODIUM 1000UNIT/ML 10ML VIAL ONE ×2 (14:41→15:34)
[2019-05-12] MEDS ORDERED: NITROGLYCERIN 50 MG/D5% WATER 1 BOT ONE (15:12)
[2019-05-12] MEDS ORDERED: EPINEPHRINE 1 MG/ML 30ML VIAL IJ ONE (15:12)
[2019-05-12] MEDS ORDERED: AMINOCAPROIC ACID 250 MG/ML 20 ML VIAL IV ONE (15:34)
[2019-05-12] MEDS ORDERED: EPINEPHRINE 1 MG/ML AMPULE ONE (15:34)
[2019-05-12] MEDS ORDERED: PROPOFOL 10 MG/ML 20ML VIAL IV ONE (15:34)
[2019-05-12] MEDS ORDERED: LIDOCAINE PF 2% 5ML ABBOJECT ONE (15:34)
[2019-05-12] MEDS ORDERED: ESMOLOL HCL 10 MG/ML 10 ML VIAL ONE ×3 (15:34→20:09)
[2019-05-12] MEDS ORDERED: NOREPINEPHRINE BITARTRATE 1 MG/1 ML ML IV ONE (15:34)
[2019-05-12] MEDS ORDERED: SODIUM BICARB 50MEQ 50ML VIAL ONE ×2 (15:34→18:37)
[2019-05-12] MEDS ORDERED: PROTAMINE SULFATE 10 MG/ML 25ML VIAL IV ONE (15:34)
[2019-05-12] MEDS ORDERED: MIDAZOLAM HCL 1 MG/ML 2ML VIAL ONE (15:35)
[2019-05-12] MEDS ORDERED: ROCURONIUM 10MG/1ML SYR 10 MG/ML ML ONE ×2 (15:35→16:51)
[2019-05-12] MEDS ORDERED: FENTANYL CITRATE PF 50 MCG/1 ML 20ML VIAL IJ ONE (15:35)
[2019-05-12] MEDS ORDERED: ETOMIDATE 2 MG/ML 10 ML VIAL ONE (15:36)
[2019-05-12] MEDS ORDERED: AMIODARONE HCL 50 MG/ML 3 ML VIAL ONE (15:37)
[2019-05-12] MEDS ORDERED: METOPROLOL TARTRATE 1 MG/ML 5ML VIAL IV ONE (15:53)
[2019-05-12 16:01] LABS: ABG BASE EXCESS -7.2 mmol/L (-2.0-3.0); ABG HCO3 16.4 mmol/L (21.0-28.0); ABG OXYGEN SATURATION 95.8 % (95.0-99.0); ABG PCO2 28 mmHg (35-48)
[2019-05-12 16:34] LABS: ABG BASE EXCESS -0.8 mmol/L (-2.0-3.0); ABG HCO3 22.6 mmol/L (21.0-28.0); ABG OXYGEN SATURATION 97.4 % (95.0-99.0); ABG PCO2 34 mmHg (35-48)
[2019-05-12] MEDS ORDERED: AMIODARONE HCL 900 MG in DEXTROSE 5%-WATER 500 ML IV PRN (16:45)
[2019-05-12 17:08] LABS: ABG BASE EXCESS 1.4 mmol/L (-2.0-3.0); ABG PCO2 41 mmHg (35-48)
[2019-05-12 17:51] LABS: ABG BASE EXCESS 4.5 mmol/L (-2.0-3.0); ABG HCO3 29.3 mmol/L (21.0-28.0); ABG PCO2 45 mmHg (35-48)
[2019-05-12 18:27] LABS: HCO3,VENOUS BLOOD GAS 21.6 (21.0-28.0); PCO2,VENOUS BLOOD GAS 46 (35-48); PH,VENOUS BLOOD GAS 7.288 (7.350-7.450)
[2019-05-12] MEDS ORDERED: POTASSIUM CHLORIDE 20MEQ/100ML 300 ML IV ONE (18:36)
[2019-05-12 18:47] LABS: ABG BASE EXCESS -0.4 mmol/L (-2.0-3.0); ABG HCO3 25.8 mmol/L (21.0-28.0); ABG OXYGEN SATURATION 99.2 % (95.0-99.0); ABG PCO2 49 mmHg (35-48)
[2019-05-12] MEDS ORDERED: SODIUM CHLORIDE 0.9% 500ML 500 ML IV SCH (18:55)
[2019-05-12] MEDS ORDERED: MORPHINE SULFATE 2 MG/ML 1ML SYG IV PRN (19:00)
[2019-05-12] MEDS ORDERED: TRAMADOL HCL 50 MG TABLET PO PRN (19:00)
[2019-05-12] MEDS ORDERED: ALBUMIN (HUMAN) 5% 250 ML IV PRN (19:00)
[2019-05-12] MEDS ORDERED: ACETAMINOPHEN 650 MG SUPPOSITORY RC PRN (19:00)
[2019-05-12] MEDS ORDERED: GLUCAGON 1MG KIT 1 MG ML IM PRN (19:00)
[2019-05-12] MEDS ORDERED: ONDANSETRON HCL 4 MG/2 ML VIAL IV PRN (19:00)
[2019-05-12] MEDS ORDERED: ACETAMINOPHEN 325 MG TAB PO PRN (19:00)
[2019-05-12] MEDS ORDERED: NOREPINEPHRINE 4MG/NS 250ML 250 ML IV PRN (19:00)
[2019-05-12] MEDS ORDERED: CALCIUM GLUCONATE 1 GM in SODIUM CHLORIDE 0.9% 50 ML IV PRN (19:00)
[2019-05-12] MEDS ORDERED: DEXTROSE 50%-WATER 50 ML DISP.SYRIN IV PRN (19:00)
[2019-05-12] MEDS ORDERED: SODIUM CHLORIDE 0.9% 10 ML VIAL IVP PRN (19:00)
[2019-05-12] MEDS ORDERED: SODIUM CHLORIDE 0.9% 1000ML 1,000 ML IV SCH (19:00)
[2019-05-12] MEDS ORDERED: SODIUM CHLORIDE 0.9% 250 ML IV PRN (19:00)
[2019-05-12] MEDS ORDERED: EPINEPHRINE 2 MG in DEXTROSE 5%-WATER 250 ML IV PRN (19:00)
[2019-05-12] MEDS ORDERED: NITROGLYCERIN 50 MG/D5% WATER 250 BOT IV SCH (19:00)
[2019-05-12] MEDS ORDERED: AMINOCAPROIC ACID 15,000 MG in SODIUM CHLORIDE 0.9% 250 ML IV SCH (19:00)
[2019-05-12] MEDS ORDERED: POTASSIUM PHOS 15 mMOL+NS250ML 250 ML IV PRN (19:00)
[2019-05-12 19:33] LABS: ABG BASE EXCESS -1.1 mmol/L (-2.0-3.0); ABG HCO3 21.6 mmol/L (21.0-28.0); ABG OXYGEN SATURATION 97.4 % (95.0-99.0); ABG PCO2 30 mmHg (35-48)
--- NOTE | 2019-05-12 20:08 | NUR ---
RECEIVED INTO CVR 213 IMMEDIATE POST CABG X4 SEDATED/INTUBATED; NON RESPONSIVE. CONNECTED TO BEDSIDE MONITOR HR 136 WITH BP 204/92. DR MONTES HERE. HE PUSHED SOME ESMOLOL IV. LEVOPHED 1MCG/MIN, EPINEPHRINE 0.03MCG/KG/MIN, AMIKAR 55ML/HR, AMIODARONE 33.3ML/HR ALL INFUSING VIA RT IJ CORDIS. CXR TAKEN & DR MONTES VIEWED IMAGE HE PULLED OUT ET TUBE 1CM WHICH NOW IS AT 22CM AT LIP LEVEL. R.T. HERE AND SECURED ET TUBE. VENT AC 12/700/+5/100% PS 10. MIDSTERNAL DRESSING DRY & INTACT. CHEST TUBES X2 SECURE, PATENT, DRAINING SANGUINOUS FLUID INTO ONE ATRIUM CONNECTED TO 20CM H20 SUCTION; NO LEAKS NOTED. SIMON CATHETER SECURE & PATENT. BLE'S WITH ELASTIC BANDAGES. BILATERAL PEDAL PULSES PALPABLE. WILL INITIATE CVR PROTOCOLS FOR DRIP & VENT WEANING PER MD ORDERS. DR MNOTES LEFT AFTER VIEWING FIRST SET OF ABG RESULTS AT 2025 AND HR SINUS 103BPM AND IBP 115/55.
[2019-05-12 20:30] LABS: ABG BASE EXCESS -1.1 mmol/L (-2.0-3.0); ABG HCO3 22.7 mmol/L (21.0-28.0); ABG OXYGEN SATURATION 91.5 % (95.0-99.0); ABG PCO2 36 mmHg (35-48)
[2019-05-12 20:32] LABS: HEMATOCRIT 40.8 % (42-54); MEAN CORPUSCULAR HEMOGLOBIN 28.9 pg (27.0-33.0); MEAN CORPUSCULAR HGB CONC 32.6 g/dL (32.0-36.0); MEAN CORPUSCULAR VOLUME 88.8 fL (79-99); PLATELET COUNT (AUTO) 227 K/uL (130-400); RED CELL DISTRIBUTION WIDTH 13.9 % (11.0-15.5); WHITE BLOOD COUNT (AUTO) 20.7 K/uL (4.8-10.8)
[2019-05-12 20:43] LABS: CREATININE 0.8 mg/dL (0.5-1.5); INR 1.56 (0.85-1.15); MAGNESIUM 1.4 mg/dL (1.80-2.40); PARTIAL THROMBOPLASTIN TIME 36.3 SEC (26.3-35.5); PHOSPHORUS 4.4 mg/dL (2.5-4.9); PROTHROMBIN TIME 16.1 SEC (9.6-11.6)
[2019-05-12 20:48] LABS: POTASSIUM 2.8 mmol/L (3.5-5.1)
[2019-05-12] MEDS: MAGNESIUM 2GM PREMIX 50ML 50 ML IV PRN (21:02)
[2019-05-12] MEDS: SODIUM BICARB 50MEQ 50ML VIAL IV PRN (21:02)
[2019-05-12] MEDS: POTASSIUM CHLORIDE 20MEQ/100ML 100 ML IV PRN ×3 (21:03→23:05)
[2019-05-12 21:27] LABS: ABG BASE EXCESS 3.7 mmol/L (-2.0-3.0); ABG HCO3 26.3 mmol/L (21.0-28.0); ABG OXYGEN SATURATION 91.9 % (95.0-99.0); ABG PCO2 34 mmHg (35-48)
--- NOTE | 2019-05-12 21:39 | NUR ---
UPDATED DR CAMACHO REGARDING PATIENT STATUS. REPORTED ABG RESULTS THE ONES DRAWN AT 2025 AND 2124. INFORMED HIM OF CURRENT DRIPS/DOSAGES/RATES INCLUDING PROPOFOL FOR SEDATION, V/S, CVP, C.O., C.I., CHEST TUBE OUTPUT, URINE OUTPUT. HE VIEWED CXR. ORDER RECEIVED TO NOT WEAN EPINEPHRINE DRIP & KEEP SEDATED/INTUBATED OVER NIGHT. PATIENT CURRENTLY ON PROPOFOL 50MCG/KG/MIN AND INTERMITTENTLY AROUSES REACHING FOR ET TUBE AND FLAILING BOTH ARMS AND LEGS. NODS 'YES" TO QUESTIONS ASKED. STRONG BILATERAL HAND DINING CAR HOP. FREQUENT FACIAL GRIMACES NOTED ALONG WITH RESTLESSNESS. WILL KEEP SEDATED WITH PROPOFOL AND USE MORPHINE ORDERED PRN PAIN.
[2019-05-12] MEDS: PROPOFOL 1000 MG/100 ML 100 ML IV PRN (21:53)
[2019-05-12] MEDS: INSULIN REGULAR, HUMAN 3ML 100 UNIT in SODIUM CHLORIDE 0.9% 99 ML IV SCH ×2 (22:14)
[2019-05-12] MEDS: MORPHINE SULFATE 4 MG/1ML SYG IV PRN (22:17)
[2019-05-12] MEDS: FAMOTIDINE/PF 20 MG/2 ML VIAL IV SCH (22:18)
[2019-05-13] VITALS (24 sets, daily range): BP systolic 78–147; BP diastolic 44–79
--- NOTE | 2019-05-13 | NUR ---
ASSESSMENT INTERMITTENTLY AWAKENS, OPENS EYES. TURNS WHEN CALLED BY NAME. MOVES ALL 4 EXTREMITIES. REACHES AND GRABS ET TUBE. RE-ORIENTED TO POST OP STATUS, PLACE, & TIME. RELAXES & BECOMES SEDATED AGAIN. HAS REMAINED IN SINUS RHYTHM HR 80-90'S. TITRATING LEVOPHED DRIP FOR BP CONTROL.
[2019-05-13] MEDS: CEFAZOLIN SODIUM 1 GM VIAL IV SCH ×3 (00:07→15:15)
[2019-05-13] MEDS: ATORVASTATIN CALCIUM 40 MG TABLET PO SCH ×2 (00:09→20:13)
[2019-05-13 00:45] LABS: MAGNESIUM 2.1 mg/dL (1.80-2.40); PHOSPHORUS 4.1 mg/dL (2.5-4.9)
[2019-05-13] MEDS: MORPHINE SULFATE 4 MG/1ML SYG IV PRN (00:50)
[2019-05-13] MEDS: PROPOFOL 1000 MG/100 ML 100 ML IV PRN ×3 (00:54→07:48)
[2019-05-13 01:27] LABS: ABG BASE EXCESS -0.5 mmol/L (-2.0-3.0); ABG OXYGEN SATURATION 96.7 % (95.0-99.0); ABG PCO2 30 mmHg (35-48)
[2019-05-13] MEDS: POTASSIUM CHLORIDE 20MEQ/100ML 100 ML IV PRN ×6 (01:38→21:14)
[2019-05-13 04:11] LABS: ABG HCO3 21.7 mmol/L (21.0-28.0); ABG OXYGEN SATURATION 94.1 % (95.0-99.0); ABG PCO2 31 mmHg (35-48)
[2019-05-13 04:26] LABS: HEMATOCRIT 35.9 % (42-54); MEAN CORPUSCULAR HEMOGLOBIN 29.2 pg (27.0-33.0); MEAN CORPUSCULAR HGB CONC 33.1 g/dL (32.0-36.0); MEAN CORPUSCULAR VOLUME 88.2 fL (79-99); PLATELET COUNT (AUTO) 255 K/uL (130-400); RED BLOOD CELL COUNT(AUTO) 4.07 MIL/uL (4.50-6.20); RED CELL DISTRIBUTION WIDTH 13.8 % (11.0-15.5); WHITE BLOOD COUNT (AUTO) 15.8 K/uL (4.8-10.8)
--- NOTE | 2019-05-13 04:28 | NUR ---
ASSESSMENT NO CHANGE IN STATUS. CONTINUES WITH BRIEF INTERMITTENT EPISODES OF RESTLESSNESS AND ANXIETY REACHING FOR ET TUBE AND THROWING LEGS OVER BED RAILS. RE-ORIENT TO PLACE, TIME, & SITUATION. ABG'S REVIEWED. PENDING AM LAB RESULTS. LEVOPHED CURRENTLY AT 9MCG/MIN WITH IBP 107/58. Addendum: 05/13/19 at 0431 by EVELIA WHITLOCK RN RN Amended: Links added.
[2019-05-13 04:58] LABS: MAGNESIUM 1.8 mg/dL (1.80-2.40); PHOSPHORUS 2.9 mg/dL (2.5-4.9); POTASSIUM 3.2 mmol/L (3.5-5.1)
[2019-05-13 05:18] LABS: INR 1.33 (0.85-1.15); PARTIAL THROMBOPLASTIN TIME 27.7 SEC (26.3-35.5); PROTHROMBIN TIME 13.6 SEC (9.6-11.6)
[2019-05-13] MEDS: MAGNESIUM 2GM PREMIX 50ML 50 ML IV PRN ×2 (05:20→21:14)
[2019-05-13] MEDS ORDERED: PHARMACY COMMUNICATION MISC SCH (06:00)
[2019-05-13] MEDS ORDERED: FUROSEMIDE 10 MG/ML 4ML VIAL IV SCH (06:30)
[2019-05-13] MEDS: SODIUM BICARB 50MEQ 50ML VIAL IV PRN ×2 (06:36→12:14)
--- NOTE | 2019-05-13 06:37 | NUR ---
REPORTED AM ABG AND LAB RESULTS TO DR CAMACHO ALSO REPORTED CURRENT V/S, DRIPS RATES AND DOSAGES, VENT SETTINGS. INFORMED HIM OF HYPOTENSION WITH LEVOPHED CURRENTLY 9MCG/MIN. ORDERS RECEIVED AND CARRIED OUT.
[2019-05-13] MEDS: NOREPINEPHRINE BITARTRATE 8 MG/NS 250ML IV SCH ×4 (07:48→16:27)
[2019-05-13] MEDS: FAMOTIDINE/PF 20 MG/2 ML VIAL IV SCH ×2 (09:39→20:13)
--- NOTE | 2019-05-13 09:42 | NUR ---
DR. CAMACHO IN TO SE PT. PLAN OF CARE DISCUSSED. NEW ORDERS RECEIVED AND NOTED.
[2019-05-13] MEDS: DEXMEDETOMIDINE HCL 400 MCG in SODIUM CHLORIDE 0.9% 100 ML IV SCH ×2 (09:47→16:28)
[2019-05-13 10:14] LABS: ABG BASE EXCESS 0.7 mmol/L (-2.0-3.0); ABG PCO2 31 mmHg (35-48)
--- NOTE | 2019-05-13 11:00 | NUR ---
DR. GORDON CALLED AND NOTIFIED OF CONSULT.
--- NOTE | 2019-05-13 11:17 | NUR ---
Per Nursing not ready for PT Re-evaluation today.Patient is intubated. Addendum: 05/13/19 at 1119 by DIANNE RODRIGUEZ, PT PT Amended: Links added.
--- NOTE | 2019-05-13 11:39 | NUR ---
CHART CHECK COMPLETED. Pt IS A 49 YEAR OLD MALE CURRENTLY ADMITTED SECONDARY TO ACUTE CONGESTIVE HEART FAILURE, AND AFIB WITH RVR. Pt S/P INTERVENTION. Pt WITH PAST MEDICAL HISTORY SIGNIFICANT FOR DMII AND OBESITY. Pt CURRENTLY NPO ON A VENTILATOR. SKILLED SPEECH THERAPY IS RECOMMENDED TO EVALUATE Pt 24HOURS POST EXTUBATION. Addendum: 05/13/19 at 1142 by KAIDEN COPELAND, [facility] Amended: Links added.
--- NOTE | 2019-05-13 11:55 | NUR ---
PT STARTED ON PRECEDEX ORDERED. PROPOFOL WEANED OFF. PT OPENS EYES TO VERBAL STIMULI, FOLLOWING SIMPLE COMMANDS. PT CALM AND COOPERATIVE. VS NOTE ON COMPUTER. CONTINUE TO MONITOR PT.
[2019-05-13 12:11] LABS: ABG BASE EXCESS -2.3 mmol/L (-2.0-3.0); ABG PCO2 25 mmHg (35-48)
--- NOTE | 2019-05-13 13:00 | NUR ---
DR. GORDON IN TO SEE PT. PLAN OF CARE DISCUSSED. NEW ORDERS RECEIVED AND NOTED.
[2019-05-13 13:26] LABS: ABG BASE EXCESS 0.5 mmol/L (-2.0-3.0); ABG HCO3 22.3 mmol/L (21.0-28.0); ABG OXYGEN SATURATION 95.8 % (95.0-99.0); ABG PCO2 29 mmHg (35-48)
--- NOTE | 2019-05-13 14:00 | NUR ---
DR. BARAHONA IN TO SEE PT. PLAN OF CARE DISCUSSED. NEW ORDERS RECEIVED AND NOTED.
[2019-05-13] MEDS: FUROSEMIDE 10 MG/ML 2ML VIAL IV SCH ×2 (14:28→21:13)
[2019-05-13 14:38] LABS: ABG BASE EXCESS 1.7 mmol/L (-2.0-3.0); ABG OXYGEN SATURATION 94.8 % (95.0-99.0); ABG PCO2 31 mmHg (35-48)
[2019-05-13 16:20] LABS: ABG BASE EXCESS 3.4 mmol/L (-2.0-3.0); ABG HCO3 26.2 mmol/L (21.0-28.0); ABG OXYGEN SATURATION 94.6 % (95.0-99.0); ABG PCO2 34 mmHg (35-48)
[2019-05-13] MEDS: INSULIN REGULAR, HUMAN 3ML 100 UNIT in SODIUM CHLORIDE 0.9% 99 ML IV SCH ×2 (16:38)
--- NOTE | 2019-05-13 17:10 | NUR ---
PT TOLERATING WEANING FROM VENT. NIF -26. DR. GORDON AND JANICE LOPEZ NOTIFIED OF ABG RESULTS. NEW ORDERS RECEIVED AND NOTED. PT EXTUBATED ORDERED. PT NOTED TACHYPNEIC AND O2 SATS 88%. PT PLACED ON BIPAP ORDERED. CONTINUE TO MONITOR PT.
[2019-05-13] MEDS ORDERED: FUROSEMIDE 10 MG/ML 2ML VIAL IV SCH (17:45)
[2019-05-13 18:45] LABS: ABG BASE EXCESS 1.3 mmol/L (-2.0-3.0); ABG HCO3 23.4 mmol/L (21.0-28.0); ABG OXYGEN SATURATION 95.7 % (95.0-99.0); ABG PCO2 30 mmHg (35-48)
--- NOTE | 2019-05-13 19:00 | NUR ---
ASSESSMENT ASSUMED CARE. AA&OX3. SITTING UP IN BED 45 DEGREES ON BIPAP 12/5 80% BACKUP RATE 16 AND CURRENT RESPIRATORY RATE 30PM. BEDSIDE MONITORING. SINUS RHYTHM HR 89. ARTERIAL SBP 110-116 & DBP 45-48. O2 SAT 96%. CHEST TUBES SECURE, PATENT, NO LEAKS NOTED. SIMON CATHETER SECURE, PATENT. BLE'S WITH TEDS & SCD'S ENCOURAGED COUGH & DEEP BREATHING. LABORED BREATHING NOTED OFF BIPAP WHEN MASK WAS REMOVED FOR ORAL CARE. INSTRUCTED ON IMPORTANCE OF KEEPING MASK IN PLACE FOR OPTIMUM OXYGENATION. NODDED HEAD IN UNDERSTANDING BUT ASKING FOR WATER. INSTRUCTED ON RISK FOR ASPIRATION D/T DYSPNEA & TACHYPNEA. MOISTENED MOUTH WITH WET ORAL SWABS. WILL CONTINUE TO MONITOR.
[2019-05-13 20:11] LABS: MAGNESIUM 1.8 mg/dL (1.80-2.40); POTASSIUM 3.6 mmol/L (3.5-5.1)
[2019-05-13] MEDS: TRAMADOL HCL 50 MG TABLET PO PRN (21:15)
--- NOTE | 2019-05-13 21:24 | NUR ---
HYPOKALEMIA/HYPOMAGNESEMIA K+3.6 AND MG 1.8. REPLACING PER IV PROTOCOLS. NO ARRYTHMIAS NOTED. CONTINUES IN NORMAL SINUS RHYTHM HR 92.
--- NOTE | 2019-05-13 22:11 | NUR ---
LABORED BREATHING CONTINUES WITH TACHYPNEA RR 34-38. O2 SAT 97%. ENCOURAGED COUGH & DEEP BREATHING / SLOW CONTROLLED BREATHING WITH BIPAP. DIURESED 237 ML OF YELLOW CLEAR URINE THE LAST HOUR POST LASIX 20MG IV SCHEDULED. WILL CONTINUE TO MONITOR. Addendum: 05/13/19 at 2214 by EVELIA WHITLOCK RN RN Amended: Links added.
[2019-05-14] VITALS (25 sets, daily range): BP systolic 85–158; BP diastolic 50–90
[2019-05-14] MEDS: POTASSIUM CHLORIDE 20MEQ/100ML 100 ML IV PRN ×5 (00:58→23:34)
[2019-05-14 03:31] LABS: HEMATOCRIT 35.3 % (42-54); MEAN CORPUSCULAR HEMOGLOBIN 28.7 pg (27.0-33.0); MEAN CORPUSCULAR HGB CONC 32.2 g/dL (32.0-36.0); PLATELET COUNT (AUTO) 235 K/uL (130-400); RED BLOOD CELL COUNT(AUTO) 3.97 MIL/uL (4.50-6.20); RED CELL DISTRIBUTION WIDTH 13.5 % (11.0-15.5); WHITE BLOOD COUNT (AUTO) 19.8 K/uL (4.8-10.8)
[2019-05-14 03:34] LABS: CREATININE 0.7 mg/dL (0.5-1.5); POTASSIUM 3.5 mmol/L (3.5-5.1)
[2019-05-14 05:47] LABS: ABG BASE EXCESS -3.1 mmol/L (-2.0-3.0); ABG HCO3 20.6 mmol/L (21.0-28.0); ABG OXYGEN SATURATION 96.2 % (95.0-99.0); ABG PCO2 33 mmHg (35-48)
[2019-05-14] MEDS: FUROSEMIDE 10 MG/ML 2ML VIAL IV SCH ×3 (06:18→22:11)
[2019-05-14] MEDS: FAMOTIDINE/PF 20 MG/2 ML VIAL IV SCH ×2 (08:45→20:10)
[2019-05-14] MEDS ORDERED: ASPIRIN 325 MG TABLET PO SCH (09:00)
[2019-05-14] MEDS: SODIUM BICARB 50MEQ 50ML VIAL IV PRN (10:28)
[2019-05-14] MEDS ORDERED: FUROSEMIDE 10 MG/ML 4ML VIAL IV SCH (10:30)
[2019-05-14] MEDS: INSULIN HUMULIN R 100 UNIT/ML 3ML SQ SCH ×3 (11:41→21:29)
[2019-05-14 12:29] LABS: ABG HCO3 24.4 mmol/L (21.0-28.0); ABG OXYGEN SATURATION 88.3 % (95.0-99.0); ABG PCO2 32 mmHg (35-48)
[2019-05-14] MEDS: ATORVASTATIN CALCIUM 40 MG TABLET PO SCH (20:10)
[2019-05-14] MEDS: TRAMADOL HCL 50 MG TABLET PO PRN (20:11)
[2019-05-14] MEDS ORDERED: POTASSIUM CHLORIDE 20 MEQ ERTAB PO SCH (21:00)
[2019-05-14] MEDS ORDERED: AMIODARONE HCL 200 MG TABLET PO SCH (21:00)
[2019-05-15] VITALS (21 sets, daily range): BP systolic 127–173; BP diastolic 65–102
--- NOTE | 2019-05-15 00:35 | NUR ---
ALTERED MENTAL STATUS. FOUND OUT OF BED, STANDING ON SIDE OF BED. ALTERED MENTAL STATUS WITH BIPAP STILL IN PLACE. ASSISTED BACK TO BED. CALLED R.T. ORDERED ABG'S STAT. PATIENT ONLY MOVING RIGHT ARM, GAZES TO THE RIGHT ONLY. NO MOVEMENT TO LEFT ARM. WITHDRAWS BILATERAL LOWER EXTREMITIES TO PAIN. NOT FOLLOWING COMMANDS AT THIS TIME. ABG RESULTS RECEIVED AT [address] CAMACHO. HE ORDERED STAT CT SCAN OF HEAD TO RULE OUT BLEED, NS 60ML/HR AND DOPAMINE DRIP TO KEEP SBP 165-180.
[2019-05-15 00:47] LABS: ABG BASE EXCESS -1.8 mmol/L (-2.0-3.0); ABG HCO3 22.2 mmol/L (21.0-28.0); ABG OXYGEN SATURATION 98.6 % (95.0-99.0); ABG PCO2 35 mmHg (35-48)
[2019-05-15] MEDS ORDERED: DOPAMINE 800MG/D5 250ML 250 ML IV PRN (01:00)
[2019-05-15] MEDS ORDERED: SODIUM CHLORIDE 0.9% 1000ML 1,000 ML IV SCH (01:00)
[2019-05-15] MEDS ORDERED: DOPAMINE 800MG/D5 250ML 250 ML IV ONE (01:02)
--- NOTE | 2019-05-15 01:30 | NUR ---
BACK FROM CT SCAN. SETTLED BACK IN ROOM. CONTINUES ON BIPAP. ALTERED MENTAL STATUS. NOT FOLLOWING COMMANDS. ONLY MOVING RIGHT ARM & HAND. NOT MOVING LEFT ARM/HAND. MOVES BLE'S. GAZE STILL ONLY TO RIGHT. SINUS TACH HR 108. BP 130/70, DOPAMINE DRIP INITIATED PER MD ORDER.
--- NOTE | 2019-05-15 02:47 | NUR ---
RECEIVED CALL FROM ALESHIA DELGADO-NEUROLOGIST FROM [facility] TELE ORDERED TO HAVE CTA HEAD & NECK DONE NOW TO RULE OUT LARGE VESSEL OCCLUSION. NOTIFIED DIE MAKER STAMPING. ON-CALL TECH NOTIFIED TO COME IN FOR EXAM.
[2019-05-15] MEDS ORDERED: IOHEXOL-350 75 ML VIAL IV ONE (02:57)
--- NOTE | 2019-05-15 03:38 | NUR ---
S/P CTA HEAD AND NECK PENDING REPORT. PATIENT CALM, APPEARS TO BE SLEEPING, EYES CLOSED. AROUSABLE WHEN CALLED BY NAME, ONLY RESPONDS WITH MOANS AND FOLLOWS SIMPLE COMMANDS, BECOMES ANXIOUS.
[2019-05-15 04:05] LABS: HEMATOCRIT 32.2 % (42-54); MEAN CORPUSCULAR HEMOGLOBIN 28.9 pg (27.0-33.0); MEAN CORPUSCULAR HGB CONC 33.1 g/dL (32.0-36.0); MEAN CORPUSCULAR VOLUME 87.3 fL (79-99); NUCLEATED RED BLOOD CELLS 0.1 % (0.0-0.19); PLATELET COUNT (AUTO) 219 K/uL (130-400); RED BLOOD CELL COUNT(AUTO) 3.69 MIL/uL (4.50-6.20); RED CELL DISTRIBUTION WIDTH 13.4 % (11.0-15.5); WHITE BLOOD COUNT (AUTO) 18.8 K/uL (4.8-10.8)
[2019-05-15 04:20] LABS: CREATININE 0.6 mg/dL (0.5-1.5); POTASSIUM 3.3 mmol/L (3.5-5.1)
[2019-05-15] MEDS: POTASSIUM CHLORIDE 20MEQ/100ML 100 ML IV PRN ×2 (04:26→05:32)
[2019-05-15 04:33] LABS: ABG BASE EXCESS -0.1 mmol/L (-2.0-3.0); ABG HCO3 23.9 mmol/L (21.0-28.0); ABG OXYGEN SATURATION 96.1 % (95.0-99.0); ABG PCO2 38 mmHg (35-48)
[2019-05-15] MEDS: FUROSEMIDE 10 MG/ML 2ML VIAL IV SCH (06:10)
--- NOTE | 2019-05-15 06:30 | NUR ---
REPORTED CT HEAD/CTA HEAD & NECK RESULTS TO DR CAMACHO. ORDERED TO REPORT TO TELE NEUROLOGIST FOR FURTHER RECOMMENDATIONS
[2019-05-15] MEDS: INSULIN HUMULIN R 100 UNIT/ML 3ML SQ SCH (07:30)
--- NOTE | 2019-05-15 07:33 | NUR ---
DR. CAMACHO HE HAS SPOKEN TO DR. ADLER AT [facility]--DECISION HAS BEEN MADE TO TRANSFER THE PATIENT
--- NOTE | 2019-05-15 07:43 | NUR ---
[facility] CALL PLACED TO [facility] TRANSFUSION NURSE TO INITIATE TRANSFER
--- NOTE | 2019-05-15 07:50 | NUR ---
DR. TOMLINSON HAS ACCEPTED PT. FOR TRANSFER TO [facility]
--- NOTE | 2019-05-15 08:06 | NUR ---
[facility] CALLED FOR TRANSPORT
--- NOTE | 2019-05-15 08:30 | NUR ---
REPORT CALLED TO [facility] Deanne MCKAY RN AT [phone].
--- NOTE | 2019-05-15 08:39 | NUR ---
EMS AT BEDSIDE FOR PT. MOTHER AT BEDSIDE AND UPDATED. ALL QUESTIONS ANSWERED, YANET NICE RETURNED TO MOTHER. REPORT GIVEN TO EMS. PT TRANSFERRED WITH DOPAMINE AT 8 MGS/KG/MIN AND NS AT 60 ML/HR. VS NOTED IN EMR. CHART AND RADIOLOGY IMAGES COPIED AND SEND WITH EMS.
--- NOTE | 2019-05-15 08:39 | NUR ---
PT TRANSFERRED WITH 2 IV PUMPS.
[2019-05-15] MEDS ORDERED: POTASSIUM CHLORIDE 10% ELIXIR 20 MEQ/15 ML UDCUP PO SCH (09:00)
== END 2019-05-15 08:38 | disposition short-term general hospital (02) | DRG 233 ==
LOC: EDH 10:10 → EDHIP 10:11 → 2DH 05-06 17:27 → 2CV 05-12 15:26 → 2CH 05-13 16:25
PROVIDERS: ADMIT Internal Medicine; ATTEND Internal Medicine
PROC: B2111ZZ Fluoroscopy of Multiple Coronary Arteries using Low Osmolar Contrast (ICD-10-PCS; principal; 2019-05-11)
PROC: 4A023N7 Measurement of Cardiac Sampling and Pressure, Left Heart, Percutaneous Approach (ICD-10-PCS; 2019-05-11)
PROC: B2151ZZ Fluoroscopy of Left Heart using Low Osmolar Contrast (ICD-10-PCS; 2019-05-11)
PROC: B4101ZZ Fluoroscopy of Abdominal Aorta using Low Osmolar Contrast (ICD-10-PCS; 2019-05-11)
PROC: 02100Z9 Bypass Coronary Artery, One Artery from Left Internal Mammary, Open Approach (ICD-10-PCS; 2019-05-12)
PROC: 021209W Bypass Coronary Artery, Three Arteries from Aorta with Autologous Venous Tissue, Open Approach (ICD-10-PCS; 2019-05-12)
PROC: 06BQ4ZZ Excision of Left Saphenous Vein, Percutaneous Endoscopic Approach (ICD-10-PCS; 2019-05-12)
PROC: 06BP4ZZ Excision of Right Saphenous Vein, Percutaneous Endoscopic Approach (ICD-10-PCS; 2019-05-12)
PROC: 5A1221Z Performance of Cardiac Output, Continuous (ICD-10-PCS; 2019-05-12)
PROC: 5A09357 Assistance with Respiratory Ventilation, Less than 24 Consecutive Hours, Continuous Positive Airway Pressure (ICD-10-PCS; 2019-05-13)
PROC: 5A09357 Assistance with Respiratory Ventilation, Less than 24 Consecutive Hours, Continuous Positive Airway Pressure (ICD-10-PCS; 2019-05-14)
PROC: 5A09357 Assistance with Respiratory Ventilation, Less than 24 Consecutive Hours, Continuous Positive Airway Pressure (ICD-10-PCS; 2019-05-15)
DX: I25.10 Atherosclerotic heart disease of native coronary artery without angina pectoris (principal); I50.43 Acute on chronic combined systolic (congestive) and diastolic (congestive) heart failure; Q22.5 Ebstein's anomaly; D68.59 Other primary thrombophilia; Q24.5 Malformation of coronary vessels; I48.19 Other persistent atrial fibrillation; I48.92 Unspecified atrial flutter; E11.9 Type 2 diabetes mellitus without complications; E78.5 Hyperlipidemia, unspecified; R09.89 Other specified symptoms and signs involving the circulatory and respiratory systems; I25.5 Ischemic cardiomyopathy; E78.00 Pure hypercholesterolemia, unspecified; I11.0 Hypertensive heart disease with heart failure; I35.8 Other nonrheumatic aortic valve disorders; I45.10 Unspecified right bundle-branch block; E66.9 Obesity, unspecified; Z68.33 Body mass index [BMI] 33.0-33.9, adult; Z79.899 Other long term (current) drug therapy; Z83.3 Family history of diabetes mellitus; Z82.49 Family history of ischemic heart disease and other diseases of the circulatory system
CPT/HCPCS: 36415; 36600; 70450; 70496; 70498; 71045; 71046; 71275; 76998; 78452; 80048; 80061; 80076; 80305; 81003; 82330; 82435; 82550; 82803; 82947; 82948; 83036; 83605; 83690; 83735; 83874; 83880; 84100; 84132; 84295; 84443; 84484; 85018; 85025; 85027; 85610; 85730; 86850; 86900; 86901; 86922; 93005; 93017; 93306; 93458; 93880; 94002; 94003; 94010; 94150; 94660; 96374; 97039; 99291; A7048; A9500; C1894; G0378; J0171; J0282; J0610; J0690; J1265; J1644; J1650; J1815; J1940; J2001; J2150; J2250; J2270; J2370; J2440; J2704; J2720; J2785; J3010; J3475; J3480; J3490; J7030; J7040; J7060; J7120; P9045; P9047; Q9967

== ENCOUNTER → 2019-09-19 | Outpatient (CLI) | payer OTHER ==
[~2019-09-19] MED LIST changes: -PRED20TA3 PO
== END | disposition home or self-care (01) ==
LOC: SHCH 08:18
PROVIDERS: ATTEND Internal Medicine Cardiovascular Disease
DX: I25.5 Ischemic cardiomyopathy (principal)
CPT/HCPCS: 93306; 93356

== ENCOUNTER → 2019-10-13 | Outpatient (CLI) | payer OTHER | END | disposition home or self-care (01) | LOC: OIH 09:09 | PROVIDERS: ATTEND Family Medicine | DX: I50.9 Heart failure, unspecified (principal); I63.9 Cerebral infarction, unspecified; Z02.71 Encounter for disability determination | CPT/HCPCS: 71046 ==

== ENCOUNTER 2020-10-10 16:09 | Inpatient (IN) | payer OTHER ==
[2020-10-10 16:57] LABS: BASOPHILS % (AUTO) 1.1 % (0.0-5.0); EOSINOPHILS % (AUTO) 0.8 % (0.0-8.0); HEMATOCRIT 41.1 % (42-54); LYMPHOCYTES % (AUTO) 23.3 % (21.0-51.0); MEAN CORPUSCULAR HEMOGLOBIN 27.6 pg (27.0-33.0); MEAN CORPUSCULAR HGB CONC 32.4 g/dL (32.0-36.0); MEAN CORPUSCULAR VOLUME 85.3 fL (79-99); MONOCYTES % (AUTO) 9.3 % (3.0-13.0); NEUTROPHILS % (AUTO) 65.2 % (40.0-77.0); PLATELET COUNT (AUTO) 266 K/uL (130-400); RED BLOOD CELL COUNT(AUTO) 4.82 MIL/uL (4.50-6.20); RED CELL DISTRIBUTION WIDTH 14.4 % (11.0-15.5); WHITE BLOOD COUNT (AUTO) 8.8 K/uL (4.8-10.8)
[2020-10-10] MEDS ORDERED: 0.9%NACL 10ML VIAL IVP SCH (17:00)
[2020-10-10] MEDS ORDERED: ACETAMINOPHEN 325 MG TAB PO PRN (17:00)
[2020-10-10 17:09] LABS: INR 1.48 (0.85-1.15); PROTHROMBIN TIME 15.6 SEC (9.6-11.6)
[2020-10-10 17:10] LABS: PARTIAL THROMBOPLASTIN TIME 31.9 SEC (26.3-35.5)
[2020-10-10 17:12] LABS: HEMOGLOBIN A1C 5.6 % (4.0-6.0)
[2020-10-10 17:13] LABS: CREATININE 0.7 mg/dL (0.5-1.5); POTASSIUM 4.1 mmol/L (3.5-5.1)
[2020-10-10 17:18] LABS: ALBUMIN 3.6 g/dL (3.5-5.0); BILIRUBIN,TOTAL 2.6 mg/dL (0.2-1.0); TOTAL PROTEIN, SERUM 7.3 g/dL (6.0-8.3)
[2020-10-10 17:24] LABS: B-TYPE NATRIURETIC PEPTIDE 247 pg/mL (0-100)
[2020-10-10 17:45] LABS: THYROID STIMULATING HORMONE 1.69 uIU/mL (0.36-3.74)
[2020-10-10] MEDS ORDERED: MORPHINE 2 MG SYG IV PRN (17:45)
[2020-10-10 18:38] VITALS: BP 129/90
[2020-10-10 20:36] LABS: BILIRUBIN,DIRECT 0.3 mg/dL (0.0-0.3)
[2020-10-10] MEDS: FAMOTIDINE 20MG VIAL IV SCH (22:01)
[2020-10-10] MEDS: LORATADINE 10 MG TABLET PO SCH (22:01)
[2020-10-10] MEDS: ATORVASTATIN 20 MG TABLET PO SCH (22:01)
[2020-10-10 22:04] VITALS: BP 132/90
[2020-10-10] MEDS: METOPROLOL TARTRATE 50 MG TAB PO SCH (22:06)
[2020-10-10] MEDS: GLIPIZIDE 5 MG TABLET PO SCH (22:08)
[2020-10-11] VITALS (12 sets, daily range): BP systolic 120–147; BP diastolic 79–105
[2020-10-11] MEDS ORDERED: DILTIAZEM 50MG VIAL IV SCH (00:45)
[2020-10-11] MEDS ORDERED: DILTIAZEM 50MG VIAL IV ONE ×2 (00:49→02:30)
[2020-10-11 05:40] LABS: BASOPHILS % (AUTO) 0.9 % (0.0-5.0); HEMATOCRIT 38.6 % (42-54); LYMPHOCYTES % (AUTO) 32.9 % (21.0-51.0); MEAN CORPUSCULAR HEMOGLOBIN 27.5 pg (27.0-33.0); MEAN CORPUSCULAR HGB CONC 32.4 g/dL (32.0-36.0); MONOCYTES % (AUTO) 10.2 % (3.0-13.0); NEUTROPHILS % (AUTO) 54.7 % (40.0-77.0); PLATELET COUNT (AUTO) 236 K/uL (130-400); RED BLOOD CELL COUNT(AUTO) 4.54 MIL/uL (4.50-6.20); RED CELL DISTRIBUTION WIDTH 14.3 % (11.0-15.5); WHITE BLOOD COUNT (AUTO) 7.8 K/uL (4.8-10.8)
[2020-10-11 05:51] LABS: ALBUMIN 3.3 g/dL (3.5-5.0); BILIRUBIN,TOTAL 1.7 mg/dL (0.2-1.0); CREATININE 0.6 mg/dL (0.5-1.5); POTASSIUM 3.8 mmol/L (3.5-5.1); TOTAL PROTEIN, SERUM 6.8 g/dL (6.0-8.3)
[2020-10-11] MEDS: GLIPIZIDE 5 MG TABLET PO SCH ×2 (08:00→16:40)
[2020-10-11] MEDS ORDERED: DILTIAZEM 125 MG/25 ML INJ 125 MG in 0.9%NACL 100ML 100 ML IV SCH (08:15)
[2020-10-11] MEDS: METOPROLOL TARTRATE 50 MG TAB PO SCH ×3 (09:00→21:04)
[2020-10-11] MEDS: LISINOPRIL 2.5 MG TABLET PO SCH (09:00)
[2020-10-11] MEDS: FAMOTIDINE 20MG VIAL IV SCH ×2 (09:11→21:05)
[2020-10-11] MEDS: FUROSEMIDE 20 MG TABLET PO SCH (09:30)
[2020-10-11] MEDS ORDERED: 0.9%NACL 1000ML 1,000 ML IV SCH (09:45)
[2020-10-11] MEDS ORDERED: MEPERIDINE-PF 25 MG/ML SYG ONE ×3 (13:33→15:38)
[2020-10-11] MEDS ORDERED: HEPARIN 10,000 UNIT/10ML (1,000 UNIT/ML) VIAL ONE (13:33)
[2020-10-11] MEDS ORDERED: LIDOCAINE HCL 400MG/20ML VIAL ONE (13:33)
[2020-10-11] MEDS ORDERED: ISOPROTERENOL HCL 0.2 MG/ML AMP/VIAL/BAG ONE (13:33)
[2020-10-11] MEDS ORDERED: MIDAZOLAM HCL 1 MG/ML 2ML VIAL ONE (13:33)
[2020-10-11] MEDS ORDERED: DiphenhydrAMINE HCL 50 MG/ML VIAL ONE (14:55)
[2020-10-11] MEDS ORDERED: APIXABAN 5 MG TABLET PO SCH (21:00)
[2020-10-11] MEDS ORDERED: APIXABAN 5 MG TABLET PO ONE (21:02)
[2020-10-11] MEDS: LORATADINE 10 MG TABLET PO SCH (21:04)
[2020-10-11] MEDS: APIXABAN 5 MG TABLET PO SCH (21:04)
[2020-10-11] MEDS: ATORVASTATIN 20 MG TABLET PO SCH (21:05)
[2020-10-12 00:05] VITALS: BP 135/93
[2020-10-12 04:12] VITALS: BP 125/83
[2020-10-12 05:13] LABS: BASOPHILS % (AUTO) 0.8 % (0.0-5.0); EOSINOPHILS % (AUTO) 0.3 % (0.0-8.0); HEMATOCRIT 39.1 % (42-54); LYMPHOCYTES % (AUTO) 19.9 % (21.0-51.0); MEAN CORPUSCULAR HEMOGLOBIN 27.7 pg (27.0-33.0); MEAN CORPUSCULAR VOLUME 86.5 fL (79-99); MONOCYTES % (AUTO) 7.8 % (3.0-13.0); NEUTROPHILS % (AUTO) 70.8 % (40.0-77.0); PLATELET COUNT (AUTO) 215 K/uL (130-400); RED BLOOD CELL COUNT(AUTO) 4.52 MIL/uL (4.50-6.20); RED CELL DISTRIBUTION WIDTH 14.3 % (11.0-15.5); WHITE BLOOD COUNT (AUTO) 7.5 K/uL (4.8-10.8)
[2020-10-12 05:24] LABS: ALBUMIN 3.2 g/dL (3.5-5.0); BILIRUBIN,TOTAL 2.8 mg/dL (0.2-1.0); CREATININE 0.5 mg/dL (0.5-1.5); POTASSIUM 3.8 mmol/L (3.5-5.1); TOTAL PROTEIN, SERUM 6.4 g/dL (6.0-8.3)
[2020-10-12 08:00] VITALS: BP 149/101
[2020-10-12] MEDS ORDERED: APIX5TAB PO (09:21)
[2020-10-12] MEDS: FUROSEMIDE 20 MG TABLET PO SCH (09:25)
[2020-10-12] MEDS: LISINOPRIL 2.5 MG TABLET PO SCH (09:25)
[2020-10-12] MEDS: METOPROLOL TARTRATE 50 MG TAB PO SCH (09:25)
[2020-10-12] MEDS: GLIPIZIDE 5 MG TABLET PO SCH (09:25)
[2020-10-12] MEDS: FAMOTIDINE 20MG VIAL IV SCH (09:26)
[2020-10-12] MEDS: APIXABAN 5 MG TABLET PO SCH (09:26)
[2020-10-12 09:36] LABS: CREATININE 0.7 mg/dL (0.5-1.5); POTASSIUM 3.8 mmol/L (3.5-5.1)
[2020-10-12 09:41] LABS: ALBUMIN 3.4 g/dL (3.5-5.0); BILIRUBIN,TOTAL 3.1 mg/dL (0.2-1.0); TOTAL PROTEIN, SERUM 6.9 g/dL (6.0-8.3)
== END 2020-10-12 13:20 | disposition home or self-care (01) | DRG 273 ==
LOC: EDH 16:09 → EDHIP 17:41 → 4CH 18:23
PROVIDERS: ADMIT Family Medicine; ATTEND Family Medicine
PROC: 02583ZZ Destruction of Conduction Mechanism, Percutaneous Approach (ICD-10-PCS; principal; 2020-10-11)
PROC: 4A023FZ Measurement of Cardiac Rhythm, Percutaneous Approach (ICD-10-PCS; 2020-10-11)
PROC: 4A0234Z Measurement of Cardiac Electrical Activity, Percutaneous Approach (ICD-10-PCS; 2020-10-11)
PROC: 02K83ZZ Map Conduction Mechanism, Percutaneous Approach (ICD-10-PCS; 2020-10-11)
DX: I48.3 Typical atrial flutter (principal); I50.43 Acute on chronic combined systolic (congestive) and diastolic (congestive) heart failure; Z79.01 Long term (current) use of anticoagulants; I25.5 Ischemic cardiomyopathy; E11.9 Type 2 diabetes mellitus without complications; E78.5 Hyperlipidemia, unspecified; I11.0 Hypertensive heart disease with heart failure; I25.10 Atherosclerotic heart disease of native coronary artery without angina pectoris; I48.0 Paroxysmal atrial fibrillation; Z79.899 Other long term (current) drug therapy; Z86.73 Personal history of transient ischemic attack (TIA), and cerebral infarction without residual deficits; Z95.1 Presence of aortocoronary bypass graft; R94.5 Abnormal results of liver function studies
CPT/HCPCS: 36415; 71045; 76705; 80053; 82140; 82247; 82248; 82948; 83036; 83735; 83880; 84436; 84443; 84484; 85025; 85610; 85730; 93005; 93306; 93613; 93621; 93653; 99156; 99157; C1893; C1894; G0378; J1200; J1644; J2175; J2250; J3490

== ENCOUNTER → 2021-11-21 | Outpatient (CLI) | payer OTHER, MEDICARE ==
[~2021-11-21] MED LIST changes: -AEC81 PO; +APIX5TAB PO
== END | disposition home or self-care (01) ==
LOC: SHCH 09:31
PROVIDERS: ATTEND Internal Medicine Cardiovascular Disease
DX: I36.1 Nonrheumatic tricuspid (valve) insufficiency (principal); I27.20 Pulmonary hypertension, unspecified; Q21.1 Atrial septal defect; Q24.8 Other specified congenital malformations of heart; I48.0 Paroxysmal atrial fibrillation; I48.3 Typical atrial flutter; I51.7 Cardiomegaly; E11.9 Type 2 diabetes mellitus without complications
CPT/HCPCS: 93306

== ENCOUNTER → 2022-02-07 | Outpatient (CLI) | payer OTHER | END | disposition home or self-care (01) | LOC: SHCH 12:43 | PROVIDERS: ATTEND Internal Medicine Cardiovascular Disease | DX: I48.0 Paroxysmal atrial fibrillation (principal) | CPT/HCPCS: 78481; A9512 ==

== ENCOUNTER 2022-04-21 05:43 | Day surgery (SDC) | payer OTHER ==
[2022-04-17 12:49] LABS: BASOPHILS % (AUTO) 0.7 % (0.0-5.0); EOSINOPHILS % (AUTO) 4.5 % (0.0-8.0); HEMATOCRIT 36.7 % (42-54); LYMPHOCYTES % (AUTO) 33.4 % (21.0-51.0); MEAN CORPUSCULAR HEMOGLOBIN 30.8 pg (27.0-33.0); MEAN CORPUSCULAR VOLUME 93.4 fL (79-99); MONOCYTES % (AUTO) 8.3 % (3.0-13.0); PLATELET COUNT (AUTO) 196 K/uL (130-400); RED BLOOD CELL COUNT(AUTO) 3.93 MIL/uL (4.50-6.20); RED CELL DISTRIBUTION WIDTH 13.4 % (11.0-15.5); WHITE BLOOD COUNT (AUTO) 7.4 K/uL (4.8-10.8)
[2022-04-17 12:56] LABS: CREATININE 0.5 mg/dL (0.5-1.5); POTASSIUM 4.1 mmol/L (3.5-5.1)
[2022-04-17 13:07] LABS: INR 1.05 (0.85-1.15); PROTHROMBIN TIME 11.4 SEC (9.6-11.6)
[2022-04-17 13:08] LABS: PARTIAL THROMBOPLASTIN TIME 31.5 SEC (26.3-35.5)
[2022-04-18 09:11] VITALS: BP 113/74
[~2022-04-21] VITALS: Ht 170.2 cm; Wt 73.0 kg
[~2022-04-21 05:43] MED LIST changes: +ASCO500C18 PO; +CHOL500051 PO; +DONE10TA43 PO; +FOLI0.8T3 PO; +LISI2.5T13 PO; +LORA10TA7 PO; +MELA5CAP PO; +METO-409 PO; -METO50TA18 PO; +MULT-1367 PO; +QUET50TA24 PO; +VITA-164 PO
[2022-04-21] MEDS ORDERED: 0.9%NACL 1000ML 1,000 ML IV ONE (06:21)
[2022-04-21 06:45] VITALS: BP 108/67
[2022-04-21] MEDS ORDERED: LIDOCAINE HCL-MPF 2% 10ML AMP IJ ONE (07:30)
[2022-04-21] MEDS ORDERED: MEPERIDINE-PF 25 MG/ML SYG ONE ×2 (07:31→09:00)
[2022-04-21] MEDS ORDERED: MIDAZOLAM HCL 5 MG/ML 2ML VIAL IV ONE (07:31)
[2022-04-21] MEDS ORDERED: 0.9%NACL 1000ML 1,000 ML IV SCH (08:00)
[2022-04-21] MEDS ORDERED: CEFAZOLIN SODIUM 1 GM VIAL IVP ONE (08:00)
[2022-04-21] MEDS ORDERED: BACITRACIN 1 EACH PACKET TP ONE (08:16)
[2022-04-21] MEDS ORDERED: ACETAMINOPHEN 500 MG TABLET PO PRN (08:30)
[2022-04-21 08:45] VITALS: BP 118/75
[2022-04-21 08:59] VITALS: BP 117/69
== END 2022-04-21 09:16 | disposition home or self-care (01) ==
LOC: DAH 05:43
PROVIDERS: ATTEND Internal Medicine Cardiovascular Disease
DX: I48.0 Paroxysmal atrial fibrillation (principal); I47.1 Supraventricular tachycardia; E11.59 Type 2 diabetes mellitus with other circulatory complications; I11.0 Hypertensive heart disease with heart failure; I50.43 Acute on chronic combined systolic (congestive) and diastolic (congestive) heart failure; E78.5 Hyperlipidemia, unspecified; Z79.899 Other long term (current) drug therapy; Z79.01 Long term (current) use of anticoagulants; Z95.1 Presence of aortocoronary bypass graft
CPT/HCPCS: 80048; 85025; 85610; 85730; 36415; 33285; 82948; A4649; C1764; J7030 ×2; J2175 ×2; J3490; J2250; A4215 ×2; A4222; A4221; A4663; A4216; A6206; A4606; A4223 ×3